=== PATIENT | female | born 1945 | race Caucasian/White ===

== ENCOUNTER 2017-03-28 16:14 | Emergency (ER) | payer MEDICARE, OTHER ==
[2017-03-28 16:35] VITALS: BP 178/75
[2017-03-28] MEDS ORDERED: LORazepam 0.5 MG Tab PO ONE (17:44)
[2017-03-28] MEDS ORDERED: Ondansetron 4 MG Tab.DIS PO ONE (17:44)
--- NOTE | 2017-03-28 17:49 | EDM.PDOC ---
ED HPI GENERAL MEDICAL PROBLEM - General Chief Complaint: Gastrointestinal Problem Stated Complaint: ILNESS Time Seen by Provider: 03/28/17 17:27 Source of Information: Reports: Patient, Family, RN Notes Reviewed History Limitations: Reports: No Limitations - History of Present Illness INITIAL COMMENTS - FREE TEXT/NARRATIVE: 71-year-old female presents emergency department today complaint of vertigo, she has a long history of vertigo however today's event may have been exacerbated by getting her hair washed in the beauty salon her head was tilted back for a period time she has had some nausea and vomiting symptoms with this abdominal pain associated with the crampiness from retching. Denies any fevers shortness breath or chest pain no or GI symptomatology. Usually controls her vertigo with Foster's maneuver. Is asymptomatic if she lays still - Related Data Allergies Allergy/AdvReac Type Severity Reaction Status Date / Time acetaminophen [From NyQuil] Allergy Cannot Verified 03/28/17 16:38 Remember clindamycin Allergy Cannot Verified 03/28/17 16:38 Remember dextromethorphan HBr Allergy Cannot Verified 03/28/17 16:38 [From NyQuil] Remember doxylamine succinate Allergy Cannot Verified 03/28/17 16:38 [From NyQuil] Remember ibuprofen Allergy Cannot Verified 03/28/17 16:38 [From DayQuil Sinus Remember Pressure/Pain] latex Allergy Cannot Verified 03/28/17 16:38 Remember meclizine Allergy Cannot Verified 03/28/17 16:38 Remember meclizine HCl [From Antivert] Allergy Cannot Verified 03/28/17 16:38 Remember pseudoephedrine HCl Allergy Cannot Verified 03/28/17 16:38 [From DayQuil Sinus Remember Pressure/Pain] Sulfa (Sulfonamide Allergy Cannot Verified 03/28/17 16:38 Antibiotics) Remember sulfamethoxazole Allergy Cannot Verified 03/28/17 16:38 [From Septra] Remember trimethoprim [From Septra] Allergy Cannot Verified 03/28/17 16:38 Remember Home Meds: Home Meds Calcium Carbonate/Vitamin D3 [Calcium 500 + Vit D Caplet] 1 each PO BID [History] Loratadine [Claritin] 10 mg PO DAILY 09/30/13 [History] Pantoprazole Sodium [Pantoprazole Sodium] 40 mg PO DAILY 09/30/13 [History] Simvastatin [Simvastatin] 40 mg PO DAILY 09/30/13 [History] Fluticasone Propionate [Flonase] 2 spray NASBOTH DAILY 08/24/15 [History] Cetirizine [ZyrTEC] 10 mg PO DAILY 09/01/15 [History] Triamcinolone Acetonide [Triamcinolone Acetonide 0.5% Oint] 1 cm TOP BID [History] Biotin 10 mg PO DAILY 03/28/17 [History] Ubidecarenone/Vitamin E Mixed [[id number]-[id number] E 200 mg-20 Unit Sfg] 200 mg PO DAILY 03/28/17 [History] Past Medical History HEENT History: Reports: Allergic Rhinitis, Impaired Vision Cardiovascular History: Reports: High Cholesterol 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: 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: Musculoskeletal History: Reports: Other (See Below) Other Musculoskeletal History: foot surg Neurological History: Reports: Vertigo Other Neuro History: concusion tingling - Infectious Disease History Infectious Disease History: Reports: Chicken Pox, Measles, Mumps - Past Surgical History Female Surgical History: Reports: Tubal Ligation Social & Family History - Tobacco Use Smoking Status *Q: Former Smoker Used Tobacco, but Quit: No Second Hand Smoke Exposure: No - Alcohol Use Days Per Week of Alcohol Use: 7 Number of Drinks Per Day: 1 Total Drinks Per Week: 7 - Recreational Drug Use Recreational Drug Use: No ED ROS GENERAL - Review of Systems Review Of Systems: See Below Constitutional: Reports: No Symptoms HEENT: Reports: Vertigo Respiratory: Reports: No Symptoms Cardiovascular: Reports: No Symptoms GI/Abdominal: Reports: No Symptoms : Reports: No Symptoms Musculoskeletal: Reports: No Symptoms Skin: Reports: No Symptoms ED EXAM, GENERAL - Physical Exam Exam: See Below Free Text/Narrative:: General: Female, not in any distress, alert and oriented x3 HEENT: head is atraumatic normocephalic, eyes pupils equal round reactive to light, sclera clear no conjunctivitis appreciated. Ears tympanic membranes clear and strong landmarks and light reflex are present bilaterally canals are clear. Nose no septal deviation, nares are clear, no blood present. Mouth mucosa is moist and pink no erythema or exudate noted in soft palate, tongue is midline uvula is midline, dentition is intact. Neck: Supple no thyromegaly no tracheal deviation. Nodes: Cervical nodes subclavicular nodes nontender no palpable lymphadenopathy noted. Lungs: clear to auscultation bilaterally with symmetrical respirations, no adventitious noise appreciated. CV: Regular rate and rhythm S1 and S2 appreciated no murmurs rubs or gallops noted. Abdomen: Soft, nontender, no palpable masses or organomegaly appreciated, no distention no guarding bowel sounds are present, Neuro: Cranial nerves II through XII grossly intact Skin: Warm and dry, intact Course - Vital Signs Last Recorded V/S: Last Vital Signs Temp 96.8 F 03/28/17 16:43 Pulse 71 03/28/17 16:43 Resp 18 03/28/17 16:43 BP 178/75 H 03/28/17 16:43 Pulse Ox 97 03/28/17 16:43 - Orders/Labs/Meds Meds: Medications Discontinued Medications Generic Name Dose Route Start Last Admin Trade Name Freq PRN Reason Stop Dose Admin Lorazepam 0.5 mg 03/28/17 17:44 03/28/17 17:53 Ativan PO 03/28/17 17:45 0.5 mg ONETIME ONE Administration Ondansetron HCl 4 mg 03/28/17 17:44 03/28/17 17:53 Zofran Odt PO 03/28/17 17:45 4 mg ONETIME ONE Administration Departure - Departure Time of Disposition: 18:42 Disposition: Home, Self-Care 01 Condition: Good Clinical Impression: Vertigo - Discharge Information Referrals: Rae Perales MD [Primary Care Provider] - Forms: ED Department Discharge Additional Instructions: Use Zofran as needed for nausea and vomiting symptoms, use Ativan as needed for vertigo symptoms, consult has been put into the physical therapy department for vertigo, call return to the emergency department worsening of symptoms - Assessment/Plan Plan: Assessment Acuity = acute Site and laterality = vertigo Etiology = unclear etiology Manifestations = nausea and vomiting Location of injury = Home Lab values = none Plan She had good improvement with combination Ativan and Zofran plan is to discharge home with Zofran 4 mg ODT 1 tab by mouth 3 times a day when necessary also Ativan 1 mg 1 tablet by mouth 3 times a day when necessary total #10 consultation was also written to physical therapy to the vertigo clinic follow- up with primary care 3-5 days if not better Patient was in agreement with the plan all questions were answered, they were instructed to return to the emergency department or call for worsening symptoms. This note was dictated using byyd voice recognition software please call with any questions.
== END 2017-03-28 19:06 | disposition home or self-care (01) ==
LOC: JP.ED 16:14
DX: R42 Dizziness and giddiness (principal); R11.2 Nausea with vomiting, unspecified; E78.00 Pure hypercholesterolemia, unspecified; K21.9 Gastro-esophageal reflux disease without esophagitis; Z87.891 Personal history of nicotine dependence; Z79.899 Other long term (current) drug therapy; Z88.1 Allergy status to other antibiotic agents; Z88.2 Allergy status to sulfonamides; Z88.6 Allergy status to analgesic agent; Z88.8 Allergy status to other drugs, medicaments and biological substances; Z91.040 Latex allergy status
CPT/HCPCS: 99283; A9270

== ENCOUNTER 2017-10-29 17:12 | Inpatient (IN) | payer MEDICARE, OTHER ==
[2017-10-29] MEDS ORDERED: Atropine/Diphenoxylate 0.025-2.5 MG Tab PO ONE (18:41)
[2017-10-29] MEDS ORDERED: Acetaminophen/HYDROcodone 325-5 MG Tab PO ONE (18:42)
--- NOTE | 2017-10-29 18:45 | EDM.PDOC ---
ED HPI GENERAL MEDICAL PROBLEM - General Chief Complaint: Abdominal Pain Stated Complaint: ABDOMINAL PAIN Time Seen by Provider: 10/29/17 18:35 Source of Information: Reports: Patient, Old Records History Limitations: Reports: No Limitations - History of Present Illness INITIAL COMMENTS - FREE TEXT/NARRATIVE: 72 yo female presents with diarrhea and upper abdominal pain progressive over the past 3-4 days. No fever. Some blood in stool felt to be from her known hemorroids. No nausea or vomiting. No pHx of any abdominal surgeries. Had colonoscopy 2 yrs ago and no pathology was found. No known exposures. Took Imodium last about 0430h today, having about 4 diarrhea stools/day. 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) - Related Data Allergies Allergy/AdvReac Type Severity Reaction Status Date / Time acetaminophen [From NyQuil] Allergy Cannot Verified 10/29/17 18:24 Remember clindamycin Allergy Cannot Verified 10/29/17 18:24 Remember dextromethorphan HBr Allergy Cannot Verified 10/29/17 18:24 [From NyQuil] Remember doxylamine succinate Allergy Cannot Verified 10/29/17 18:24 [From NyQuil] Remember ibuprofen Allergy Cannot Verified 10/29/17 18:24 [From DayQuil Sinus Remember Pressure/Pain] latex Allergy Cannot Verified 10/29/17 18:24 Remember meclizine Allergy Cannot Verified 10/29/17 18:24 Remember meclizine HCl [From Antivert] Allergy Cannot Verified 10/29/17 18:24 Remember pseudoephedrine HCl Allergy Cannot Verified 10/29/17 18:24 [From DayQuil Sinus Remember Pressure/Pain] Sulfa (Sulfonamide Allergy Cannot Verified 10/29/17 18:24 Antibiotics) Remember sulfamethoxazole Allergy Cannot Verified 10/29/17 18:24 [From Septra] Remember trimethoprim [From Septra] Allergy Cannot Verified 10/29/17 18:24 Remember Home Meds: Home Meds Calcium Carbonate/Vitamin D3 [Calcium 500 + Vit D Caplet] 1 each PO BID [History] Loratadine [Claritin] 10 mg PO DAILY 09/30/13 [History] Simvastatin 40 mg PO DAILY 09/30/13 [History] Fluticasone Propionate [Flonase] 2 spray NASBOTH DAILY 08/24/15 [History] Cetirizine [ZyrTEC] 10 mg PO DAILY 09/01/15 [History] Triamcinolone Acetonide [Triamcinolone Acetonide 0.5% Oint] 1 cm TOP BID [History] Biotin 10 mg PO DAILY 03/28/17 [History] Ubidecarenone/Vitamin E Mixed [[id number]-[id number] E 200 mg-20 Unit Sfg] 200 mg PO DAILY 03/28/17 [History] amLODIPine [Norvasc] 1 tab PO DAILY 10/29/17 [History] Past Medical History HEENT History: Reports: Allergic Rhinitis, Impaired Vision Cardiovascular History: Reports: High Cholesterol 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: Musculoskeletal History: Reports: Other (See Below) Other Musculoskeletal History: foot surg Neurological History: Reports: Vertigo Other Neuro History: concusion tingling - Infectious Disease History Infectious Disease History: Reports: Chicken Pox, Measles, Mumps - Past Surgical History Female Surgical History: Reports: Tubal Ligation Social & Family History - Tobacco Use Smoking Status *Q: Never Smoker ED ROS GENERAL - Review of Systems Review Of Systems: See Below Constitutional: Reports: No Symptoms HEENT: Reports: No Symptoms Respiratory: Reports: No Symptoms Cardiovascular: Reports: No Symptoms Endocrine: Reports: No Symptoms GI/Abdominal: Reports: Abdominal Pain, Anorexia, Diarrhea, Decreased Appetite. Denies: Black Stool, Bloody Stool, Constipation, Distension, Hematemesis, Hematochezia, Melena, Nausea, Stool Incontinence, Vomiting : Reports: No Symptoms Musculoskeletal: Reports: No Symptoms Skin: Reports: No Symptoms Neurological: Reports: No Symptoms Psychiatric: Reports: No Symptoms ED EXAM, GI/ABD - Physical Exam Exam: See Below Exam Limited By: No Limitations General Appearance: Alert, WD/WN, No Apparent Distress Eyes: Bilateral: Normal Appearance, EOMI Ears: Normal External Exam, Normal Canal, Hearing Grossly Normal, Normal TMs Nose: Normal Inspection, Normal Mucosa, No Blood Throat/Mouth: Normal Inspection, Normal Lips, Normal Oropharynx, Normal Voice, No Airway Compromise Head: Atraumatic, Normocephalic Neck: Normal Inspection, Supple, Non-Tender Respiratory/Chest: No Respiratory Distress, Lungs Clear, Normal Breath Sounds, No Accessory Muscle Use Cardiovascular: Regular Rate, Rhythm, No Edema GI/Abdominal Exam: Normal Bowel Sounds, Soft, No Distention, Tender (Mild mid to lower abdominal tenderness on palpation. ). No: Non-Tender Back Exam: Normal Inspection. No: CVA Tenderness (R), CVA Tenderness (L) Extremities: Normal Inspection, Normal Range of Motion, Non-Tender, No Pedal Edema Neurological: Alert, Oriented, CN II-XII Intact, Normal Cognition, No Motor/ Sensory Deficits Psychiatric: Normal Affect, Normal Mood Skin Exam: Warm, Dry, Intact, Normal Color, No Rash Lymphatic: No Adenopathy Course - Vital Signs Last Recorded V/S: Last Vital Signs Temp 36.8 C 10/29/17 18:30 Pulse 60 10/29/17 18:30 Resp 14 10/29/17 18:30 BP 160/68 H 10/29/17 18:30 Pulse Ox 7 L 10/29/17 18:30 - Orders/Labs/Meds Orders: Active Orders 24 hr Category Date Time Status Abdomen Pelvis w Cont [CT] Stat Exams 10/29/17 19:28 Taken CLOSTRIDIUM DIFFICILE BY PCR [RM] Stat Lab 10/29/17 18:41 Ordered Ciprofloxacin in D5W [Cipro in D5W 400 MG/200 ML] 400 Med 10/29/17 21:11 Active mg Premix Bag 1 bag IV ONETIME metroNIDAZOLE/Normal Saline [Flagyl 500 MG in NS 100 ML Med 10/29/17 21:11 Active ] 500 mg Premix Bag 1 bag IV ONETIME Medication Orders Ciprofloxacin/Dextrose 400 mg/ (Premix) 200 mls @ 200 mls/hr IV ONETIME ONE Stop: 10/29/17 22:10 Metronidazole 500 mg/ Premix 100 mls @ 100 mls/hr IV ONETIME ONE Stop: 10/29/17 22:10 Labs: Laboratory Tests 10/29/17 10/29/17 Range/Units 18:54 18:54 WBC 12.5 H (4.5-11.0) K/uL RBC 4.93 (3.30-5.50) M/uL Hgb 14.2 (12.0-15.0) g/dL Hct 42.8 (36.0-48.0) % MCV 87 (80-98) fL MCH 29 (27-31) pg MCHC 33 (32-36) % Plt Count 225 (150-400) K/uL Sodium 139 L (140-148) mmol/L Potassium 4.2 (3.6-5.2) mmol/L Chloride 105 (100-108) mmol/L Carbon Dioxide 27 (21-32) mmol/L Anion Gap 11.2 (5.0-14.0) mmol/L BUN 7 (7-18) mg/dL Creatinine 0.7 (0.6-1.0) mg/dL Est Cr Clr Drug Dosing 64.58 mL/min Estimated GFR (MDRD) > 60 (>60) Glucose 109 H (74-106) mg/dL Calcium 8.7 (8.5-10.1) mg/dL Total Bilirubin 0.4 (0.2-1.0) mg/dL AST 14 L (15-37) U/L ALT 20 (12-78) U/L Alkaline Phosphatase 66 (46-116) U/L C-Reactive Protein 4.02 H (0.0-0.3) mg/dL Total Protein 6.3 L (6.4-8.2) g/dL Albumin 3.0 L (3.4-5.0) g/dL Globulin 3.3 (2.3-3.5) g/dL Albumin/Globulin Ratio 0.9 L (1.2-2.2) Lipase 104 (73-393) U/L Meds: Medications Generic Name Dose Route Start Last Admin Trade Name Freq PRN Reason Stop Dose Admin Ciprofloxacin/Dextrose 400 mg/ 200 mls @ 200 mls/hr 10/29/17 21:11 Premix IV 10/29/17 22:10 ONETIME ONE Metronidazole 500 mg/ Premix 100 mls @ 100 mls/hr 10/29/17 21:11 IV 10/29/17 22:10 ONETIME ONE Discontinued Medications Generic Name Dose Route Start Last Admin Trade Name Freq PRN Reason Stop Dose Admin Hydrocodone Bitart/Acetaminophen 1 tab 10/29/17 18:42 10/29/17 19:03 Calcium 325-5 Mg PO 10/29/17 18:43 1 tab ONETIME ONE Administration Diphenoxylate HCl/Atropine 1 tab 10/29/17 18:41 10/29/17 19:02 Lomotil 0.025-2.5 Mg PO 10/29/17 18:42 1 tab ONETIME ONE Administration Famotidine 20 mg 10/29/17 21:11 Pepcid IVPUSH 10/29/17 21:12 ONETIME ONE Sodium Chloride 100 mls @ 3.5 mls/sec 10/29/17 19:59 10/29/17 20:19 Normal Saline IV 10/29/17 20:00 3.5 mls/sec ONETIME ONE Administration Lactated Ringer's 1,000 mls @ 1,000 mls/hr 10/29/17 20:20 10/29/17 21:02 Ringers, Lactated IV 10/29/17 21:19 1,000 mls/hr BOLUS ONE Administration Iopamidol 150 ml 10/29/17 20:00 10/29/17 20:19 Isovue-300 (61%) IV 110 ml . DIRECTED CHINTAN Administration Sodium Chloride 10 ml 10/29/17 19:59 10/29/17 20:19 Saline Flush FLUSH 10/29/17 20:00 10 ml ONETIME ONE Administration - Radiology Interpretation Free Text/Narrative:: CT abd/pelvis with IV contrast-severe wall thickening of the ascending colo and hepatic flexure. CT Results Date: 10/29/17 CT Results Time: 21:05 Departure - Departure Time of Disposition: 21:40 Disposition: Admitted As Inpatient 68 Condition: Fair Clinical Impression: Colitis - Discharge Information Referrals: Vega Solo MD [Primary Care Provider] - Forms: ED Department Discharge - My Orders Last 24 Hours: My Active Orders 10/29/17 18:41 CLOSTRIDIUM DIFFICILE BY PCR [RM] Stat 10/29/17 19:28 Abdomen Pelvis w Cont [CT] Stat 10/29/17 21:11 Ciprofloxacin in D5W [Cipro in D5W 400 MG/200 ML] 400 mg Premix Bag 1 bag IV ONETIME metroNIDAZOLE/Normal Saline [Flagyl 500 MG in NS 100 ML] 500 mg Premix Bag 1 bag IV ONETIME - Assessment/Plan Last 24 Hours: My Active Orders 10/29/17 18:41 CLOSTRIDIUM DIFFICILE BY PCR [RM] Stat 10/29/17 19:28 Abdomen Pelvis w Cont [CT] Stat 10/29/17 21:11 Ciprofloxacin in D5W [Cipro in D5W 400 MG/200 ML] 400 mg Premix Bag 1 bag IV ONETIME metroNIDAZOLE/Normal Saline [Flagyl 500 MG in NS 100 ML] 500 mg Premix Bag 1 bag IV ONETIME
[2017-10-29] MEDS ORDERED: Sodium Chloride 0.9% 10 ML Syringe FLUSH ONE (19:59)
[2017-10-29] MEDS ORDERED: Sodium Chloride 0.9% 100 ML IV ONE (19:59)
[2017-10-29] MEDS ORDERED: Iopamidol 612 MG/ML 150 ML Bottle IV SCH (20:00)
[2017-10-29] MEDS ORDERED: Lactated Ringers 1,000 ML IV ONE (20:20)
[2017-10-29] MEDS ORDERED: Ciprofloxacin in D5W 400 MG in Premix Bag 1 BAG IV ONE ×2 (21:11)
[2017-10-29] MEDS ORDERED: metroNIDAZOLE/Normal Saline 500 MG in Premix Bag 1 BAG IV ONE (21:11)
[2017-10-29] MEDS ORDERED: Famotidine 20 MG/2 ML SDV IVPUSH ONE (21:11)
[2017-10-29] MEDS ORDERED: Lactated Ringers 1,000 ML IV SCH (21:45)
[2017-10-29] MEDS ORDERED: metroNIDAZOLE/Normal Saline 100 ML ONE (22:37)
[2017-10-29] MEDS ORDERED: Sodium Chloride 0.9% 1,000 ML IV SCH (23:32)
[2017-10-29] MEDS ORDERED: Docusate Sodium 100 MG Cap PO PRN (23:32)
[2017-10-29] MEDS ORDERED: Morphine 2 MG/ML Syringe IVPUSH PRN (23:32)
[2017-10-29] MEDS ORDERED: Ondansetron 4 MG/2 ML SDV IV PRN (23:32)
[2017-10-29] MEDS ORDERED: Ondansetron 4 MG Tab.DIS PO PRN (23:32)
[2017-10-29] MEDS ORDERED: Zolpidem 5 MG Tab PO PRN (23:32)
[2017-10-29] MEDS ORDERED: Albuterol 0.083% 2.5 MG/3 ML Neb Soln NEB PRN (23:32)
[2017-10-29] MEDS ORDERED: Bisacodyl 5 MG Tab PO PRN (23:32)
[2017-10-29] MEDS ORDERED: LORazepam 2 MG/ML SDV IV PRN (23:32)
[2017-10-30] MEDS: Acetaminophen/HYDROcodone 325-5 MG Tab PO PRN ×4 (00:16→20:36)
[2017-10-30] MEDS: Piperacillin/Tazobactam 3.375 GM in Sodium Chloride 0.9% 50 ML IV SCH ×2 (00:20→04:19)
[2017-10-30] MEDS: Melatonin 3 MG Tab PO SCH ×2 (00:24→20:14)
[2017-10-30] MEDS ORDERED: Simvastatin 20 MG Tab ONE (01:01)
[2017-10-30] MEDS: Simvastatin 20 MG Tab PO SCH ×2 (01:08→20:15)
[2017-10-30] MEDS: metroNIDAZOLE/Normal Saline 500 MG in Premix Bag 1 BAG IV SCH ×3 (05:58→22:07)
--- NOTE | 2017-10-30 07:01 | PCM.HP ---
H&P History of Present Illness - General Date of Service: 10/29/17 Admit Problem/Dx: Admission Diagnosis/Problem Admission Diagnosis/Problem Colitis Source of Information: Patient, Family () History Limitations: Reports: No Limitations - History of Present Illness Initial Comments - Free Text/Narative: 72 yo female presents with diarrhea and upper abdominal pain progressive over the past 3-4 days. No fever. Some blood in stool felt to be from her known hemorroids. No nausea or vomiting. No pHx of any abdominal surgeries. Had colonoscopy 2 yrs ago and no pathology was found. No known exposures. Took Imodium last about 0430h today, having about 4 diarrhea stools/day. Onset: Gradual Onset Date: 10/25/17 Duration: Getting Worse Location: Reports: Abdomen Quality: Reports: Ache Severity: Moderate Improves with: Reports: None Worsens with: Reports: None Context: Reports: Other (unknown) Associated Symptoms: Denies: Fever/Chills, Nausea/Vomiting Treatments REGISTRATION REPRESENTATIVE: Reports: Other (see below) (none) CT abd/pelvis with IV contrast-severe wall thickening of the ascending colo and hepatic flexure. CT Results Date: 10/29/17 CT Results Time: 21:05 Departure; admission Onset of Symptoms: Reports: Gradual Symptom Onset Date: 10/26/17 Duration of Symptoms: Reports: Waxing/Waning, Other (not able to eat for 2 days due to pain, nausea, vomiting.) Location: Reports: Abdomen Quality: Reports: Same as Previous Episode Severity: Severe Improves with: Reports: None Worsens with: Reports: Eating Context: Reports: Other (chronic disease) Associated Symptoms: Reports: Loss of Appetite, Malaise, Nausea/Vomiting, Weakness 7 Pain Score (Numeric/FACES): 3 - Related Data Allergies/Adverse Reactions: Allergies Allergy/AdvReac Type Severity Reaction Status Date / Time acetaminophen [From NyQuil] Allergy Cannot Verified 10/29/17 18:24 Remember clindamycin Allergy Cannot Verified 10/29/17 18:24 Remember dextromethorphan HBr Allergy Cannot Verified 10/29/17 18:24 [From NyQuil] Remember doxylamine succinate Allergy Cannot Verified 10/29/17 18:24 [From NyQuil] Remember ibuprofen Allergy Cannot Verified 10/29/17 18:24 [From DayQuil Sinus Remember Pressure/Pain] latex Allergy Cannot Verified 10/29/17 18:24 Remember meclizine Allergy Cannot Verified 10/29/17 18:24 Remember meclizine HCl [From Antivert] Allergy Cannot Verified 10/29/17 18:24 Remember pseudoephedrine HCl Allergy Cannot Verified 10/29/17 18:24 [From DayQuil Sinus Remember Pressure/Pain] Sulfa (Sulfonamide Allergy Cannot Verified 10/29/17 18:24 Antibiotics) Remember sulfamethoxazole Allergy Cannot Verified 10/29/17 18:24 [From Septra] Remember trimethoprim [From Septra] Allergy Cannot Verified 10/29/17 18:24 Remember Home Medications: Home Meds Calcium Carbonate/Vitamin D3 [Calcium 500 + Vit D Caplet] 1 each PO BID [History] Loratadine [Claritin] 10 mg PO DAILY 09/30/13 [History] Simvastatin 40 mg PO DAILY 09/30/13 [History] Fluticasone Propionate [Flonase] 2 spray NASBOTH DAILY 08/24/15 [History] Cetirizine [ZyrTEC] 10 mg PO DAILY 09/01/15 [History] Triamcinolone Acetonide [Triamcinolone Acetonide 0.5% Oint] 1 cm TOP BID [History] Biotin 10 mg PO DAILY 03/28/17 [History] Ubidecarenone/Vitamin E Mixed [[id number] E 200 mg-20 Unit Sfg] 200 mg PO DAILY 03/28/17 [History] amLODIPine [Norvasc] 1 tab PO DAILY 10/29/17 [History] Past Medical History HEENT History: Reports: Allergic Rhinitis, Impaired Vision Cardiovascular History: Reports: High Cholesterol 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: GERD [employer]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: Musculoskeletal History: Reports: Arthritis, Other (See Below) Other Musculoskeletal History: foot surg Neurological History: Reports: Vertigo Other Neuro History: concusion tingling Endocrine/Metabolic History: Reports: Other (See Below) Other Endocrine/Metabolic History: prediabetic Hematologic History: Reports: Iron Deficiency - Infectious Disease History Infectious Disease History: Reports: Chicken Pox, Measles, Mumps - Past Surgical History Female Surgical History: Reports: Tubal Ligation Social & Family History - Family History Family Medical History: Noncontributory - Tobacco Use Smoking Status *Q: Former Smoker Used Tobacco, but Quit: Yes Month/Year Tobacco Last Used: 1972 - Caffeine Use Caffeine Use: Reports: None - Alcohol Use Number of Drinks Per Day: 1 Date of Last Drink: 10/22/17 - Recreational Drug Use Recreational Drug Use: No - Living Situation & Occupation Living situation: Reports: (lives in [place] with .) H&P Review of Systems - Review of Systems: Review Of Systems: See Below General: Reports: Malaise, Weakness, Decreased Appetite HEENT: Reports: Glasses Pulmonary: Reports: No Symptoms Cardiovascular: Reports: No Symptoms Gastrointestinal: Reports: Abdominal Pain Genitourinary: Reports: No Symptoms Musculoskeletal: Reports: No Symptoms Skin: Reports: No Symptoms Psychiatric: Reports: No Symptoms Neurological: Reports: No Symptoms Hematologic/Lymphatic: Reports: No Symptoms Immunologic: Reports: Anaphylaxis (multi medication allergies) Exam - Exam Exam: See Below - Vital Signs Vital Signs: Last Vital Signs Temp 36.2 C 10/30/17 03:00 Pulse 56 L 10/30/17 03:00 Resp 16 10/30/17 03:00 BP 144/61 H 10/30/17 03:00 Pulse Ox 96 10/30/17 03:00 Weight: 73.936 kg - Exam General: Alert, Oriented, 4 HEENT: PERRLA, Hearing Intact, Mucosa Moist & [place], Nares Patent, Normal Nasal Septum, Posterior Pharynx Clear, Conjunctiva Clear, EOMI, EACs Clear, TMs Clear Neck: Supple, Trachea Midline, 2 Lungs: Clear to Auscultation, Normal Respiratory Effort Cardiovascular: Regular Rate GI/Abdominal Exam: Normal Bowel Sounds, Distended (mild), Tender (Female) Exam: Deferred Rectal (Female) Exam: Deferred Back Exam: Normal Inspection, Full Range of Motion, NT Extremities: Normal Inspection, Normal Range of Motion, Non-Tender, No Pedal Edema, Normal Capillary Refill Peripheral Pulses: 2+: Radial (L), Radial (R), Posterior Tibial (R), Dorsalis Pedis (L) Skin: Warm, Dry, Intact Neurological: Cranial Nerves Intact, Reflexes Equal Bilateral Neuro Extensive - Mental Status: Alert, Oriented x3, Normal Mood/Affect, Normal Cognition Neuro Extensive - Motor, Sensory, Reflexes: CN II-XII Intact, Normal Reflexes Psychiatric: Alert, Normal Affect, Normal Mood - Patient Data Lab Results Last 24 hrs: Laboratory Results - last 24 hr 10/29/17 10/29/17 10/30/17 Range/Units 18:54 18:54 05:06 WBC 12.5 H 10.4 (4.5-11.0) K/uL RBC 4.93 4.53 (3.30-5.50) M/uL Hgb 14.2 13.1 (12.0-15.0) g/dL Hct 42.8 39.6 (36.0-48.0) % MCV 87 87 (80-98) fL MCH 29 29 (27-31) pg MCHC 33 33 (32-36) % Plt Count 225 203 (150-400) K/uL Neut % (Auto) 72 H (36-66) % Lymph % (Auto) 16 L (24-44) % [place] % (Auto) 9 H (2-6) % Eos % (Auto) 2 (2-4) % Baso % (Auto) 0 (0-1) % Sodium 139 L (140-148) mmol/L Potassium 4.2 (3.6-5.2) mmol/L Chloride 105 (100-108) mmol/L Carbon Dioxide 27 (21-32) mmol/L Anion Gap 11.2 (5.0-14.0) mmol/L BUN 7 (7-18) mg/dL Creatinine 0.7 (0.6-1.0) mg/dL Est Cr Clr Drug Dosing 64.58 mL/min Estimated GFR (MDRD) > 60 (>60) Glucose 109 H (74-106) mg/dL Calcium 8.7 (8.5-10.1) mg/dL Total Bilirubin 0.4 (0.2-1.0) mg/dL AST 14 L (15-37) U/L ALT 20 (12-78) U/L Alkaline Phosphatase 66 (46-116) U/L C-Reactive Protein 4.02 H (0.0-0.3) mg/dL Total Protein 6.3 L (6.4-8.2) g/dL Albumin 3.0 L (3.4-5.0) g/dL Globulin 3.3 (2.3-3.5) g/dL Albumin/Globulin Ratio 0.9 L (1.2-2.2) Lipase 104 (73-393) U/L 10/30/17 Range/Units 05:06 WBC (4.5-11.0) K/uL RBC (3.30-5.50) M/uL Hgb (12.0-15.0) g/dL Hct (36.0-48.0) % MCV (80-98) fL MCH (27-31) pg MCHC (32-36) % Plt Count (150-400) K/uL Neut % (Auto) (36-66) % Lymph % (Auto) (24-44) % [place] % (Auto) (2-6) % Eos % (Auto) (2-4) % Baso % (Auto) (0-1) % Sodium 140 (140-148) mmol/L Potassium 3.6 (3.6-5.2) mmol/L Chloride 106 (100-108) mmol/L Carbon Dioxide 25 (21-32) mmol/L Anion Gap 8.8 (5.0-14.0) mmol/L BUN 7 (7-18) mg/dL Creatinine 0.6 (0.6-1.0) mg/dL Est Cr Clr Drug Dosing 75.34 mL/min Estimated GFR (MDRD) > 60 (>60) Glucose 110 H (74-106) mg/dL Calcium 8.3 L (8.5-10.1) mg/dL Total Bilirubin (0.2-1.0) mg/dL AST (15-37) U/L ALT (12-78) U/L Alkaline Phosphatase (46-116) U/L C-Reactive Protein (0.0-0.3) mg/dL Total Protein (6.4-8.2) g/dL Albumin (3.4-5.0) g/dL Globulin (2.3-3.5) g/dL Albumin/Globulin Ratio (1.2-2.2) Lipase (73-393) U/L Result Diagrams: 10/30/17 05:06 10/30/17 05:06 - Problem List (1) Colitis SNOMED Code(s): 97083897 ICD Code: K52.9 - NONINFECTIVE GASTROENTERITIS AND COLITIS, UNSPECIFIED Status: Acute Priority: High Current Visit: Yes (2) Hypertension SNOMED Code(s): 27411393 ICD Code: I10 - ESSENTIAL (PRIMARY) HYPERTENSION Status: Acute Priority: Low Current Visit: Yes Qualifiers: Hypertension type: essential hypertension Qualified Code(s): I10 - Essential (primary) hypertension Problem List Initiated/Reviewed/Updated: Yes Orders Last 24hrs: Active Orders 24 hr Category Date Time Status Patient Status [ADT] Routine ADT 10/29/17 23:32 Active Intake and Output [RC] QSHIFT Care 10/29/17 23:32 Active Notify Provider Vital Signs [RC] ASDIRECTED Care 10/29/17 23:32 Active Oxygen Therapy [RC] .PRN Care 10/29/17 23:32 Active Pulse Oximetry [RC] .PRN Care 10/29/17 23:32 Active RT Aerosol Therapy [RC] ASDIRECTED Care 10/29/17 23:32 Active Up ad Olga [RC] ASDIRECTED Care 10/29/17 23:32 Active Vital Signs [RC] Q4H Care 10/29/17 23:32 Active Consult to Spiritual Care [CONS] Routine Cons 10/29/17 23:32 Active Clear Liquid Diet [DIET] Diet 10/29/17 Breakfast Active Abdomen Pelvis w Cont [CT] Stat Exams 10/29/17 19:28 Taken CLOSTRIDIUM DIFFICILE BY PCR [RM] Stat Lab 10/29/17 18:41 Ordered Acetaminophen/HYDROcodone [Clio 325-5 MG] Med 10/29/17 23:32 Active 1 tab PO Q4H PRN Albuterol [Proventil Neb Soln] Med 10/29/17 23:32 Active 2.5 mg NEB Q4H PRN Bisacodyl [Dulcolax] Med 10/29/17 23:32 Active 5 mg PO DAILY PRN Calcium Carbonate/Vitamin D3 [Caltrate 600+D 1500 MG- Med 10/30/17 09:00 Active 400 Units] 1 tab PO BID Cetirizine [ZyrTEC] Med 10/30/17 09:00 Active 10 mg PO DAILY Docusate Sodium [Colace] Med 10/29/17 23:32 Active 100 mg PO BID PRN Enoxaparin [Lovenox] Med 10/30/17 09:00 Active 30 mg SUBCUT DAILY Famotidine [Pepcid] Med 10/30/17 09:00 Active 20 mg IVPUSH BID Fluticasone Propionate [Flonase] Med 10/30/17 09:00 Active 0 gm NASBOTH DAILY LORazepam [Ativan] Med 10/29/17 23:32 Active 1 mg IV Q6H PRN Lactated Ringers [Ringers, Lactated] 1,000 ml Med 10/29/17 21:45 Active IV ASDIRECTED Loratadine [Claritin] Med 10/30/17 09:00 Pending 10 mg PO DAILY Melatonin Med 10/30/17 00:00 Active 9 mg PO BEDTIME Morphine Med 10/29/17 23:32 Active 2 mg IVPUSH Q2H PRN Ondansetron [Zofran ODT] Med 10/29/17 23:32 Active 4 mg PO Q6H PRN Ondansetron [Zofran] Med 10/29/17 23:32 Active 4 mg IV Q4H PRN Piperacillin/Tazobactam [Zosyn] 3.375 gm Med 10/29/17 23:00 Active Sodium Chloride 0.9% [Normal Saline] 50 ml IV Q6H Simvastatin [Zocor] Med 10/30/17 01:00 Active 40 mg PO BEDTIME Sodium Chloride 0.9% [Normal Saline] 1,000 ml Med 10/29/17 23:32 Active IV ASDIRECTED Zolpidem [Ambien] Med 10/29/17 23:32 Active 5 mg PO BEDTIME PRN amLODIPine [Norvasc] Med 10/30/17 09:00 Active 2.5 mg PO DAILY methylPREDNISolone Sod Succ [Solu-MEDROL] Med 10/30/17 06:58 Once 125 mg IVPUSH ONETIME ONE methylPREDNISolone Sod Succ [Solu-MEDROL] Med 10/30/17 13:10 Ordered 62.5 mg IVPUSH Q6H metroNIDAZOLE/Normal Saline [Flagyl 500 MG in NS 100 ML Med 10/30/17 06:00 Active ] 500 mg Premix Bag 1 bag IV Q8H Resuscitation Status Routine Resus Stat 10/29/17 23:00 Ordered Medication Orders Hydrocodone Bitart/Acetaminophen (Clio 325-5 Mg) 1 tab PO Q4H PRN PRN Reason: Pain (moderate 4-6) Last Admin: 10/30/17 00:16 Dose: 1 tab Albuterol (Proventil Neb Soln) 2.5 mg NEB Q4H PRN PRN Reason: Shortness Of Breath/wheezing Amlodipine Besylate (Norvasc) 2.5 mg PO DAILY [facility] Bisacodyl (Dulcolax) 5 mg PO DAILY PRN PRN Reason: Constipation Calcium Carbonate (Caltrate 600+D 1500 Mg-400 Units) 1 tab PO BID [facility] Cetirizine HCl (Zyrtec) 10 mg PO DAILY [facility] Docusate Sodium (Colace) 100 mg PO BID PRN PRN Reason: Constipation Enoxaparin Sodium (Lovenox) 30 mg SUBCUT DAILY [facility] Famotidine (Pepcid) 20 mg IVPUSH BID [facility] Fluticasone Propionate (Flonase) 0 gm NASBOTH DAILY [facility] Lactated Ringer's (Ringers, Lactated) 1,000 mls @ 150 mls/hr IV ASDIRECTED [facility] Last Admin: 10/29/17 22:03 Dose: 150 mls/hr Metronidazole 500 mg/ Premix 100 mls @ 100 mls/hr IV Q8H [facility] Last Admin: 10/30/17 05:58 Dose: 100 mls/hr Piperacillin Sod/Tazobactam (Sod 3.375 gm/ Sodium Chloride) 50 mls @ 100 mls/ hr IV Q6H [facility] Last Admin: 10/30/17 04:19 Dose: 100 mls/hr Admin: 10/30/17 00:20 Dose: 100 mls/hr Sodium Chloride (Normal Saline) 1,000 mls @ 125 mls/hr IV ASDIRECTED [facility] Last Admin: 10/30/17 05:59 Dose: 125 mls/hr Loratadine (Claritin) 10 mg PO DAILY [facility] Lorazepam (Ativan) 1 mg IV Q6H PRN PRN Reason: Nausea/Vomiting Melatonin (Melatonin) 9 mg PO BEDTIME [facility] Last Admin: 10/30/17 00:24 Dose: 9 mg Methylprednisolone Sodium Succinate (Solu-Medrol) 125 mg IVPUSH ONETIME ONE Stop: 10/30/17 06:59 Methylprednisolone Sodium Succinate (Solu-Medrol) 62.5 mg IVPUSH Q6H [facility] Morphine Sulfate (Morphine) 2 mg IVPUSH Q2H PRN PRN Reason: Pain (severe 7-10) Ondansetron HCl (Zofran Odt) 4 mg PO Q6H PRN PRN Reason: Nausea able to take PO Ondansetron HCl (Zofran) 4 mg IV Q4H PRN PRN Reason: Nausea/Vomiting Simvastatin (Zocor) 40 mg PO BEDTIME [facility] Last Admin: 10/30/17 01:08 Dose: 40 mg Zolpidem Tartrate (Ambien) 5 mg PO BEDTIME PRN PRN Reason: Sleep Assessment/Plan Comment:: Assessment/Plan Comment:: ASSESSMENT AND PLAN - Mrs. Marroquin, resports 4 day history of abdominal pain with nausa and vomiting, unable to eat for the past two day. now with weakness. Labs in ER show elevated WBC 12.5, Na 139, K+ 4.2, cl 105, anion cap 11.2, bun 7 , cr 0.7, gluc 109. crp 4.02 Imagine; abdomen-pelvis CT, severe wall thickening noted in the ascending colon and hepatic flexure with mild surrounding edema and inflammatory changes. findingare likely due to infectious colitis or inflammatory bowel disease. Typhlitis or ischemic bowel can be considered in the appropriate clinical context. Colitis -IV every 24 hours -IV Flagyle 500mg every 8 hours -IV Zoysn 3.375 mg iv every 6 hr -IV fluid NS 125ml/hr -IV Solumedrol 125mg mg now and 62.5mg IV every 6 hours -clear liquid diet -am labs cbc, bmp Essential hypertension - blood pressure currently normal but will need to be monitored closely with active infection. Usual medications will be continued unless blood pressure trends down Maintenance issues - - DVT prophylaxis - enoxaparin - GI prophylaxis - IV Pepcid - Nutrition - clear diet - Olea catheter - not indicated -spiritual care CODE STATUS - FULL Admission justification - This patient will be admitted for inpatient services and is medically appropriate meeting medical necessity for inpatient admission as outlined in my documentation. I reasonably expect the patient will require inpatient services that span a period time over 2 midnights. I reasonably expect this patient to be discharged or transferred within 96 hours [facility]. Disposition - anticipate discharge home after the hospital stay Primary care physician - Veag Hilarioists: Steven Teixeira M.D.
[2017-10-30] MEDS ORDERED: methylPREDNISolone Sodium Succinate 125 MG/2 ML SDV IVPUSH ONE (07:30)
[2017-10-30] MEDS ORDERED: Enoxaparin 30 MG/0.3 ML Syringe SUBCUT SCH (09:00)
[2017-10-30] MEDS ORDERED: Loratadine 5 MG/5 ML Soln ML (120 ML Bottle) PO SCH (09:00)
[2017-10-30] MEDS: Piperacillin/Tazobactam/Dext 3.375 GM in Premix Bag 1 BAG IV SCH ×3 (11:00→23:15)
--- NOTE | 2017-10-30 11:58 | PCM.PN ---
- General Info Date of Service: 10/30/17 Functional Status: Reports: Pain Controlled, Tolerating Diet - Review of Systems General: Denies: Fever Gastrointestinal: Denies: Diarrhea Systems Review Comment:: There were no acute events overnight. Patient did not have any fevers. She has not had diarrhea since presentation. Still having mild to moderate right upper quadrant abdominal pain and some nausea. Not much of an appetite. Stool studies are still pending. No complaints of vomiting. - Patient Data Vitals - Most Recent: Last Vital Signs Temp 36.1 C 10/30/17 11:25 Pulse 54 L 10/30/17 11:25 Resp 18 10/30/17 11:25 BP 134/56 L 10/30/17 11:25 Pulse Ox 94 L 10/30/17 11:25 Weight - Most Recent: 73.936 kg I&O - Last 24 Hours: Intake & Output 10/29/17 10/30/17 10/30/17 22:59 06:59 14:59 Intake Total 898 240 Balance 898 240 Lab Results Last 24 Hours: Laboratory Results - last 24 hr 10/29/17 10/29/17 10/30/17 Range/Units 18:54 18:54 05:06 WBC 12.5 H 10.4 (4.5-11.0) K/uL RBC 4.93 4.53 (3.30-5.50) M/uL Hgb 14.2 13.1 (12.0-15.0) g/dL Hct 42.8 39.6 (36.0-48.0) % MCV 87 87 (80-98) fL MCH 29 29 (27-31) pg MCHC 33 33 (32-36) % Plt Count 225 203 (150-400) K/uL Neut % (Auto) 72 H (36-66) % Lymph % (Auto) 16 L (24-44) % [place] % (Auto) 9 H (2-6) % Eos % (Auto) 2 (2-4) % Baso % (Auto) 0 (0-1) % Sodium 139 L (140-148) mmol/L Potassium 4.2 (3.6-5.2) mmol/L Chloride 105 (100-108) mmol/L Carbon Dioxide 27 (21-32) mmol/L Anion Gap 11.2 (5.0-14.0) mmol/L BUN 7 (7-18) mg/dL Creatinine 0.7 (0.6-1.0) mg/dL Est Cr Clr Drug Dosing 64.58 mL/min Estimated GFR (MDRD) > 60 (>60) Glucose 109 H (74-106) mg/dL Calcium 8.7 (8.5-10.1) mg/dL Total Bilirubin 0.4 (0.2-1.0) mg/dL AST 14 L (15-37) U/L ALT 20 (12-78) U/L Alkaline Phosphatase 66 (46-116) U/L C-Reactive Protein 4.02 H (0.0-0.3) mg/dL Total Protein 6.3 L (6.4-8.2) g/dL Albumin 3.0 L (3.4-5.0) g/dL Globulin 3.3 (2.3-3.5) g/dL Albumin/Globulin Ratio 0.9 L (1.2-2.2) Lipase 104 (73-393) U/L 10/30/17 Range/Units 05:06 WBC (4.5-11.0) K/uL RBC (3.30-5.50) M/uL Hgb (12.0-15.0) g/dL Hct (36.0-48.0) % MCV (80-98) fL MCH (27-31) pg MCHC (32-36) % Plt Count (150-400) K/uL Neut % (Auto) (36-66) % Lymph % (Auto) (24-44) % [place] % (Auto) (2-6) % Eos % (Auto) (2-4) % Baso % (Auto) (0-1) % Sodium 140 (140-148) mmol/L Potassium 3.6 (3.6-5.2) mmol/L Chloride 106 (100-108) mmol/L Carbon Dioxide 25 (21-32) mmol/L Anion Gap 8.8 (5.0-14.0) mmol/L BUN 7 (7-18) mg/dL Creatinine 0.6 (0.6-1.0) mg/dL Est Cr Clr Drug Dosing 75.34 mL/min Estimated GFR (MDRD) > 60 (>60) Glucose 110 H (74-106) mg/dL Calcium 8.3 L (8.5-10.1) mg/dL Total Bilirubin (0.2-1.0) mg/dL AST (15-37) U/L ALT (12-78) U/L Alkaline Phosphatase (46-116) U/L C-Reactive Protein (0.0-0.3) mg/dL Total Protein (6.4-8.2) g/dL Albumin (3.4-5.0) g/dL Globulin (2.3-3.5) g/dL Albumin/Globulin Ratio (1.2-2.2) Lipase (73-393) U/L Med Orders - Current: Current Medications Hydrocodone Bitart/Acetaminophen ([place] 325-5 Mg) 1 tab PO Q4H PRN PRN Reason: Pain (moderate 4-6) Last Admin: 10/30/17 07:52 Dose: 1 tab Albuterol (Proventil Neb Soln) 2.5 mg NEB Q4H PRN PRN Reason: Shortness Of Breath/wheezing Amlodipine Besylate (Norvasc) 2.5 mg PO DAILY [facility] Bisacodyl (Dulcolax) 5 mg PO DAILY PRN PRN Reason: Constipation Calcium Carbonate (Caltrate 600+D 1500 Mg-400 Units) 1 tab PO BID [facility] Cetirizine HCl (Zyrtec) 10 mg PO DAILY [facility] Docusate Sodium (Colace) 100 mg PO BID PRN PRN Reason: Constipation Enoxaparin Sodium (Lovenox) 40 mg SUBCUT DAILY [facility] Famotidine (Pepcid) 20 mg IVPUSH BID [facility] Fluticasone Propionate (Flonase) 0 gm NASBOTH DAILY [facility] Metronidazole 500 mg/ Premix 100 mls @ 100 mls/hr IV Q8H [facility] Last Admin: 10/30/17 05:58 Dose: 100 mls/hr Piperacillin/Tazobactam/ (Dextrose 3.375 gm/ Premix) 50 mls @ 100 mls/hr IV Q6H [facility] Last Admin: 10/30/17 11:00 Dose: 100 mls/hr Loratadine (Claritin) 10 mg PO DAILY [facility] Lorazepam (Ativan) 1 mg IV Q6H PRN PRN Reason: Nausea/Vomiting Melatonin (Melatonin) 9 mg PO BEDTIME [facility] Last Admin: 10/30/17 00:24 Dose: 9 mg Methylprednisolone Sodium Succinate (Solu-Medrol) 62.5 mg IVPUSH Q6H [facility] Morphine Sulfate (Morphine) 2 mg IVPUSH Q2H PRN PRN Reason: Pain (severe 7-10) Ondansetron HCl (Zofran Odt) 4 mg PO Q6H PRN PRN Reason: Nausea able to take PO Ondansetron HCl (Zofran) 4 mg IV Q4H PRN PRN Reason: Nausea/Vomiting Simvastatin (Zocor) 40 mg PO BEDTIME [facility] Last Admin: 10/30/17 01:08 Dose: 40 mg Zolpidem Tartrate (Ambien) 5 mg PO BEDTIME PRN PRN Reason: Sleep Discontinued Medications Hydrocodone Bitart/Acetaminophen ([place] 325-5 Mg) 1 tab PO ONETIME ONE Stop: 10/29/17 18:43 Last Admin: 10/29/17 19:03 Dose: 1 tab Diphenoxylate HCl/Atropine (Lomotil 0.025-2.5 Mg) 1 tab PO ONETIME ONE Stop: 10/29/17 18:42 Last Admin: 10/29/17 19:02 Dose: 1 tab Famotidine (Pepcid) 20 mg IVPUSH ONETIME ONE Stop: 10/29/17 21:12 Last Admin: 10/29/17 22:04 Dose: 20 mg Sodium Chloride (Normal Saline) 100 mls @ 3.5 mls/sec IV ONETIME ONE Stop: 10/29/17 20:00 Last Admin: 10/29/17 20:19 Dose: 3.5 mls/sec Lactated Ringer's (Ringers, Lactated) 1,000 mls @ 1,000 mls/hr IV BOLUS ONE Stop: 10/29/17 21:19 Last Admin: 10/29/17 21:02 Dose: 1,000 mls/hr Ciprofloxacin/Dextrose 400 mg/ (Premix) 200 mls @ 200 mls/hr IV ONETIME ONE Stop: 10/29/17 22:10 Last Admin: 10/30/17 01:09 Dose: Not Given Metronidazole 500 mg/ Premix 100 mls @ 100 mls/hr IV ONETIME ONE Stop: 10/29/17 22:10 Last Admin: 10/29/17 22:31 Dose: 100 mls/hr Lactated Ringer's (Ringers, Lactated) 1,000 mls @ 150 mls/hr IV ASDIRECTED [facility] Last Admin: 10/29/17 22:03 Dose: 150 mls/hr Metronidazole (Flagyl 500 Mg In Ns 100 Ml) Confirm Administered Dose 100 mls @ as directed .ROUTE .STK-MED ONE Stop: 10/29/17 22:38 Last Admin: 10/29/17 22:41 Dose: Not Given Piperacillin Sod/Tazobactam (Sod 3.375 gm/ Sodium Chloride) 50 mls @ 100 mls/ hr IV Q6H [facility] Last Admin: 10/30/17 04:19 Dose: 100 mls/hr Sodium Chloride (Normal Saline) 1,000 mls @ 125 mls/hr IV ASDIRECTED [facility] Last Admin: 10/30/17 05:59 Dose: 125 mls/hr Iopamidol (Isovue-300 (61%)) 150 ml IV . DIRECTED [facility] Last Admin: 10/29/17 20:19 Dose: 110 ml Methylprednisolone Sodium Succinate (Solu-Medrol) 125 mg IVPUSH ONETIME ONE Stop: 10/30/17 07:31 Last Admin: 10/30/17 07:47 Dose: 125 mg Simvastatin (Zocor) Confirm Administered Dose 40 mg .ROUTE .STK-MED ONE Stop: 10/30/17 01:02 Last Admin: 10/30/17 01:08 Dose: Not Given Sodium Chloride (Saline Flush) 10 ml FLUSH ONETIME ONE Stop: 10/29/17 20:00 Last Admin: 10/29/17 20:19 Dose: 10 ml - Exam Quality Assessment: No: Supplemental Oxygen General: Alert, Oriented, Cooperative, No Acute Distress Lungs: Normal Respiratory Effort GI/Abdominal Exam: Soft, No Distention Extremities: No Pedal Edema Psy/Mental Status: Alert, Normal Affect - Problem List Review Problem List Initiated/Reviewed/Updated: Yes - My Orders Last 24 Hours: My Active Orders 10/30/17 08:52 CULTURE STOOL + SHIGATOX [RM] Routine WBC, STOOL [OP] Routine 10/30/17 12:00 Sodium Chloride 0.9% [Normal Saline] 1,000 ml IV ASDIRECTED 10/31/17 05:00 BASIC METABOLIC PANEL,BMP [CHEM] Timed CBC W/O DIFF,HEMOGRAM [HEME] Timed (1) - Plan Plan:: ASSESSMENT AND PLAN - Colitis - CT scan revealed inflammation in the descending and early part of the transverse colon at the hepatic flexure. Differential includes inflammatory versus infectious. She is not having fevers but infectious seems the most likely. No personal or family history of inflammatory bowel disease. Stool studies are still pending. -Gentle IV fluids -Antibiotic coverage with metronidazole and Pip/Tazo -IV Solumedrol 62.5mg IV every 6 hours -clear liquid diet -Follow-up stool studies including C. difficile, stool culture and fecal leukocytes -She will likely need a colonoscopy at some point unless a definitive diagnosis can be determined Essential hypertension - blood pressure currently normal but will need to be monitored closely with active infection. Usual medications will be continued unless blood pressure trends down. Maintenance issues - - DVT prophylaxis - enoxaparin - GI prophylaxis - famotidine - Nutrition - clear diet Disposition - anticipate discharge home after the hospital stay Primary care physician - Vega Teixeira M.D.
[2017-10-30] MEDS ORDERED: Sodium Chloride 0.9% 1,000 ML IV SCH (12:00)
[2017-10-30] MEDS: Fluticasone Propionate Nasal Spray 16 GM Bottle NASBOTH SCH (13:52)
[2017-10-30] MEDS: Calcium Carbonate/Vitamin D3 1500 MG-400 Units Tab PO SCH ×2 (13:52→20:14)
[2017-10-30] MEDS: Famotidine 20 MG/2 ML SDV IVPUSH SCH ×2 (13:53→20:15)
[2017-10-30] MEDS: Cetirizine 10 MG Tab PO SCH (13:53)
[2017-10-30] MEDS: methylPREDNISolone Sodium Succinate 125 MG/2 ML SDV IVPUSH SCH ×2 (13:54→20:13)
[2017-10-30] MEDS: amLODIPine 5 MG Tab PO SCH (13:54)
[2017-10-30] MEDS: Enoxaparin 40 MG/0.4 ML Syringe SUBCUT SCH (14:02)
[2017-10-31] MEDS: methylPREDNISolone Sodium Succinate 125 MG/2 ML SDV IVPUSH SCH ×2 (01:50→08:22)
[2017-10-31] MEDS: Piperacillin/Tazobactam/Dext 3.375 GM in Premix Bag 1 BAG IV SCH ×4 (03:58→22:08)
[2017-10-31] MEDS: metroNIDAZOLE/Normal Saline 500 MG in Premix Bag 1 BAG IV SCH ×3 (05:19→22:51)
[2017-10-31] MEDS: Acetaminophen/HYDROcodone 325-5 MG Tab PO PRN (06:34)
[2017-10-31] MEDS: Calcium Carbonate/Vitamin D3 1500 MG-400 Units Tab PO SCH ×2 (08:22→20:13)
[2017-10-31] MEDS: Enoxaparin 40 MG/0.4 ML Syringe SUBCUT SCH (08:22)
[2017-10-31] MEDS: amLODIPine 5 MG Tab PO SCH (08:22)
[2017-10-31] MEDS: Fluticasone Propionate Nasal Spray 16 GM Bottle NASBOTH SCH (08:22)
[2017-10-31] MEDS: Cetirizine 10 MG Tab PO SCH (08:23)
[2017-10-31] MEDS: Famotidine 20 MG/2 ML SDV IVPUSH SCH ×2 (08:24→20:13)
--- NOTE | 2017-10-31 12:04 | PCM.PN ---
- General Info Date of Service: 10/31/17 Subjective Update: Ms. Marroquin is a 72-year-old woman who is admitted with a recent history of right- sided abdominal pain associated with diarrhea. CT scan of the abdomen showed evidence of inflammation in the ascending colon and hepatic flexure. Since admission she has been treated with IV antibiotic therapy as well as IV Solu- Medrol. Symptoms have essentially resolved with only minimal residual abdominal pain and she has had no further diarrhea. Currently tolerating a diet without significant difficulty. Functional Status: Reports: Pain Controlled, Tolerating Diet, Urinating - Review of Systems General: Denies: Fever, Weakness, Chills Pulmonary: Reports: No Symptoms Cardiovascular: Reports: No Symptoms Gastrointestinal: Reports: No Symptoms - Patient Data Vitals - Most Recent: Last Vital Signs Temp 97.4 F 10/31/17 11:00 Pulse 67 10/31/17 11:00 Resp 16 10/31/17 11:00 BP 131/57 L 10/31/17 11:00 Pulse Ox 94 L 10/31/17 11:00 Weight - Most Recent: 163 lb 0.016 oz I&O - Last 24 Hours: Intake & Output 10/30/17 10/31/17 10/31/17 22:59 06:59 14:59 Intake Total 1570 1961 Output Total 1100 600 500 Balance 470 1361 -500 Lab Results Last 24 Hours: Laboratory Results - last 24 hr 10/31/17 10/31/17 Range/Units 05:53 05:53 WBC 13.8 H (4.5-11.0) K/uL RBC 4.42 (3.30-5.50) M/uL Hgb 12.7 (12.0-15.0) g/dL Hct 38.5 (36.0-48.0) % MCV 87 (80-98) fL MCH 29 (27-31) pg MCHC 33 (32-36) % Plt Count 242 (150-400) K/uL Sodium 140 (140-148) mmol/L Potassium 3.7 (3.6-5.2) mmol/L Chloride 107 (100-108) mmol/L Carbon Dioxide 25 (21-32) mmol/L Anion Gap 8.4 (5.0-14.0) mmol/L BUN 8 (7-18) mg/dL Creatinine 0.7 (0.6-1.0) mg/dL Est Cr Clr Drug Dosing 64.58 mL/min Estimated GFR (MDRD) > 60 (>60) Glucose 156 H (74-106) mg/dL Calcium 8.5 (8.5-10.1) mg/dL Med Orders - Current: Current Medications Hydrocodone Bitart/Acetaminophen ([place] 325-5 Mg) 1 tab PO Q4H PRN PRN Reason: Pain (moderate 4-6) Last Admin: 10/31/17 06:34 Dose: 1 tab Albuterol (Proventil Neb Soln) 2.5 mg NEB Q4H PRN PRN Reason: Shortness Of Breath/wheezing Amlodipine Besylate (Norvasc) 2.5 mg PO DAILY [facility] Last Admin: 10/31/17 08:22 Dose: 2.5 mg Bisacodyl (Dulcolax) 5 mg PO DAILY PRN PRN Reason: Constipation Calcium Carbonate (Caltrate 600+D 1500 Mg-400 Units) 1 tab PO BID [facility] Last Admin: 10/31/17 08:22 Dose: 1 tab Cetirizine HCl (Zyrtec) 10 mg PO DAILY [facility] Last Admin: 10/31/17 08:23 Dose: 10 mg Docusate Sodium (Colace) 100 mg PO BID PRN PRN Reason: Constipation Enoxaparin Sodium (Lovenox) 40 mg SUBCUT DAILY [facility] Last Admin: 10/31/17 08:22 Dose: Not Given Famotidine (Pepcid) 20 mg IVPUSH BID [facility] Last Admin: 10/31/17 08:24 Dose: 20 mg Fluticasone Propionate (Flonase) 0 gm NASBOTH DAILY [facility] Last Admin: 10/31/17 08:22 Dose: 2 sprays Metronidazole 500 mg/ Premix 100 mls @ 100 mls/hr IV Q8H [facility] Last Admin: 10/31/17 05:19 Dose: 100 mls/hr Piperacillin/Tazobactam/ (Dextrose 3.375 gm/ Premix) 50 mls @ 100 mls/hr IV Q6H [facility] Last Admin: 10/31/17 10:12 Dose: 100 mls/hr Lactobacillus Rhamnosus (Culturelle) 1 cap PO BID [facility] Lorazepam (Ativan) 1 mg IV Q6H PRN PRN Reason: Nausea/Vomiting Melatonin (Melatonin) 9 mg PO BEDTIME [facility] Last Admin: 10/30/17 20:14 Dose: 9 mg Morphine Sulfate (Morphine) 2 mg IVPUSH Q2H PRN PRN Reason: Pain (severe 7-10) Ondansetron HCl (Zofran Odt) 4 mg PO Q6H PRN PRN Reason: Nausea able to take PO Ondansetron HCl (Zofran) 4 mg IV Q4H PRN PRN Reason: Nausea/Vomiting Simvastatin (Zocor) 40 mg PO BEDTIME [facility] Last Admin: 10/30/17 20:15 Dose: 40 mg Zolpidem Tartrate (Ambien) 5 mg PO BEDTIME PRN PRN Reason: Sleep Discontinued Medications Hydrocodone Bitart/Acetaminophen ([place] 325-5 Mg) 1 tab PO ONETIME ONE Stop: 10/29/17 18:43 Last Admin: 10/29/17 19:03 Dose: 1 tab Diphenoxylate HCl/Atropine (Lomotil 0.025-2.5 Mg) 1 tab PO ONETIME ONE Stop: 10/29/17 18:42 Last Admin: 10/29/17 19:02 Dose: 1 tab Famotidine (Pepcid) 20 mg IVPUSH ONETIME ONE Stop: 10/29/17 21:12 Last Admin: 10/29/17 22:04 Dose: 20 mg Sodium Chloride (Normal Saline) 100 mls @ 3.5 mls/sec IV ONETIME ONE Stop: 10/29/17 20:00 Last Admin: 10/29/17 20:19 Dose: 3.5 mls/sec Lactated Ringer's (Ringers, Lactated) 1,000 mls @ 1,000 mls/hr IV BOLUS ONE Stop: 10/29/17 21:19 Last Admin: 10/29/17 21:02 Dose: 1,000 mls/hr Ciprofloxacin/Dextrose 400 mg/ (Premix) 200 mls @ 200 mls/hr IV ONETIME ONE Stop: 10/29/17 22:10 Last Admin: 10/30/17 01:09 Dose: Not Given Metronidazole 500 mg/ Premix 100 mls @ 100 mls/hr IV ONETIME ONE Stop: 10/29/17 22:10 Last Admin: 10/29/17 22:31 Dose: 100 mls/hr Lactated Ringer's (Ringers, Lactated) 1,000 mls @ 150 mls/hr IV ASDIRECTED [facility] Last Admin: 10/29/17 22:03 Dose: 150 mls/hr Metronidazole (Flagyl 500 Mg In Ns 100 Ml) Confirm Administered Dose 100 mls @ as directed .ROUTE .STK-MED ONE Stop: 10/29/17 22:38 Last Admin: 10/29/17 22:41 Dose: Not Given Piperacillin Sod/Tazobactam (Sod 3.375 gm/ Sodium Chloride) 50 mls @ 100 mls/ hr IV Q6H [facility] Last Admin: 10/30/17 04:19 Dose: 100 mls/hr Sodium Chloride (Normal Saline) 1,000 mls @ 125 mls/hr IV ASDIRECTED [facility] Last Admin: 10/30/17 05:59 Dose: 125 mls/hr Sodium Chloride (Normal Saline) 1,000 mls @ 75 mls/hr IV ASDIRECTED [facility] Last Admin: 10/30/17 15:48 Dose: 75 mls/hr Iopamidol (Isovue-300 (61%)) 150 ml IV . DIRECTED [facility] Last Admin: 10/29/17 20:19 Dose: 110 ml Methylprednisolone Sodium Succinate (Solu-Medrol) 125 mg IVPUSH ONETIME ONE Stop: 10/30/17 07:31 Last Admin: 10/30/17 07:47 Dose: 125 mg Methylprednisolone Sodium Succinate (Solu-Medrol) 62.5 mg IVPUSH Q6H [facility] Last Admin: 10/31/17 08:22 Dose: 62.5 mg Simvastatin (Zocor) Confirm Administered Dose 40 mg .ROUTE .STK-MED ONE Stop: 10/30/17 01:02 Last Admin: 10/30/17 01:08 Dose: Not Given Sodium Chloride (Saline Flush) 10 ml FLUSH ONETIME ONE Stop: 10/29/17 20:00 Last Admin: 10/29/17 20:19 Dose: 10 ml - Exam Quality Assessment: DVT Prophylaxis General: Alert, Oriented, Cooperative, No Acute Distress Lungs: Clear to Auscultation, Normal Respiratory Effort Cardiovascular: Regular Rate, Regular Rhythm, No Murmurs GI/Abdominal Exam: Soft, Non-Tender, No Organomegaly, No Distention Extremities: Non-Tender, No Pedal Edema Skin: Warm, Dry - Problem List Review Problem List Initiated/Reviewed/Updated: Yes - My Orders Last 24 Hours: My Active Orders 10/31/17 11:09 Convert IV to Saline Lock [OM.PC] Routine 10/31/17 12:00 Lactobacillus Rhamnosus GG [Culturelle] 1 cap PO BID 10/31/17 Lunch Soft Diet [DIET] - Plan Plan:: ASSESSMENT AND PLAN - Colitis - CT scan revealed inflammation in the ascending and early part of the transverse colon at the hepatic flexure. Differential includes inflammatory versus infectious. She is not having fevers but infectious seems the most likely. No personal or family history of inflammatory bowel disease. Stool studies are still pending, but she has had no diarrhea since admission. -Saline lock IV -Antibiotic coverage with metronidazole and Pip/Tazo -Discontinue IV Solu-Medrol -Soft low fiber diet -She will likely need a colonoscopy as an outpatient Essential hypertension - blood pressure currently normal but will need to be monitored closely with active infection. Usual medications will be continued unless blood pressure trends down. Maintenance issues - - DVT prophylaxis - enoxaparin - GI prophylaxis - famotidine - Nutrition - soft low residue diet Disposition - anticipate discharge home after the hospital stay Primary care physician - Vega Solo
[2017-10-31] MEDS: Lactobacillus Rhamnosus GG (Probiotic) Cap PO SCH ×2 (12:49→20:13)
[2017-10-31] MEDS: Simvastatin 20 MG Tab PO SCH (20:13)
[2017-10-31] MEDS: Melatonin 3 MG Tab PO SCH (20:13)
[2017-11-01] MEDS: Piperacillin/Tazobactam/Dext 3.375 GM in Premix Bag 1 BAG IV SCH ×2 (04:27→09:55)
[2017-11-01] MEDS: metroNIDAZOLE/Normal Saline 500 MG in Premix Bag 1 BAG IV SCH (05:11)
[2017-11-01] MEDS: amLODIPine 5 MG Tab PO SCH (08:08)
[2017-11-01] MEDS: Lactobacillus Rhamnosus GG (Probiotic) Cap PO SCH (08:08)
[2017-11-01] MEDS: Calcium Carbonate/Vitamin D3 1500 MG-400 Units Tab PO SCH (08:08)
[2017-11-01] MEDS: Cetirizine 10 MG Tab PO SCH (08:09)
[2017-11-01] MEDS: Fluticasone Propionate Nasal Spray 16 GM Bottle NASBOTH SCH (08:09)
[2017-11-01] MEDS: Famotidine 20 MG/2 ML SDV IVPUSH SCH (08:10)
[2017-11-01 11:09] VITALS: BP 145/67
--- NOTE | 2017-11-01 12:51 | PCM.DCSUM1 ---
Discharge Summary - Hospital Course Brief History: Ms. Marroquin is a 72-year-old woman who was admitted through the emergency department with a recent history of right-sided abdominal pain associated with diarrhea, secondary to colitis of the right colon. Diagnosis: Stroke: No - Discharge Data Discharge Date: 11/01/17 Discharge Disposition: Home, Self-Care 01 Condition: Fair - Discharge Diagnosis/Problem(s) (1) Colitis SNOMED Code(s): 68445887 ICD Code: K52.9 - NONINFECTIVE GASTROENTERITIS AND COLITIS, UNSPECIFIED Status: Acute Priority: High Current Visit: Yes (2) Pre-diabetes SNOMED Code(s): 434940393 ICD Code: R73.03 - PREDIABETES Status: Chronic Current Visit: No - Patient Summary/Data Consults: Consultations 10/29/17 23:32 Consult to Spiritual Care [CONS] Routine Hospital Course: 72 yo female presents with diarrhea and upper abdominal pain progressive over the past 3-4 days. No fever. Some blood in stool felt to be from her known hemorroids. No nausea or vomiting. No pHx of any abdominal surgeries. Had colonoscopy 2 yrs ago and no pathology was found. No known exposures. Took Imodium last about 0430h today, having about 4 diarrhea stools/day. On admission vital signs were stable and her white blood cell count was modestly elevated. CT scan of the abdomen and pelvis showed evidence of inflammation in the ascending colon and hepatic flexure. Differential included inflammatory bowel disease versus infection. She was given IV pain medication as needed for pain and IV fluids for hydration. Antibiotic therapy was initiated with Zosyn and Flagyl. She was also started on IV Solu-Medrol. On the day prior to discharge the Solu-Medrol was discontinued as it was felt unlikely that the inflammation was secondary to inflammatory bowel disease given the abrupt presentation. She was continued with the IV antibiotics up until the time of discharge. She will be discharged home with an additional 5 days of oral antibiotic therapy with ciprofloxacin and Flagyl. Probiotic therapy was initiated during hospitalization and she will be continued on this after discharge. She had tolerated a soft diet prior to discharge and had had no further diarrhea during the hospitalization. Because of the lack of diarrhea we were unable to obtain stool studies for further evaluation. She will remain on a soft low residue diet for a period of 10 days. I suggested that she have a colonoscopy for follow-up in the next 14-28 days. Follow-up appointment has been scheduled with her primary care physician. Activity will be as tolerated. - Patient Instructions Diet: GI Soft/Low Residue/Low Fiber (10 days) Activity: As Tolerated Other/Special Instructions: Consider further evaluation with colonoscopy in 14- 28 days. - Discharge Plan *PRESCRIPTION DRUG MONITORING PROGRAM REVIEWED*: Not Applicable *COPY OF PRESCRIPTION DRUG MONITORING REPORT IN PATIENT CHANA: Not Applicable Prescriptions/Med Rec: Ciprofloxacin HCl [Cipro] 500 mg PO BID #10 tablet Lactobacillus Rhamnosus GG [Culturelle] 1 cap PO BID #60 cap metroNIDAZOLE [Flagyl] 500 mg PO Q8H #15 tab Home Medications: Home Meds Calcium Carbonate/Vitamin D3 [Calcium 500 + Vit D Caplet] 1 each PO BID [History] Loratadine [Claritin] 10 mg PO DAILY 09/30/13 [History] Simvastatin 40 mg PO DAILY 09/30/13 [History] Fluticasone Propionate [Flonase] 2 spray NASBOTH DAILY 08/24/15 [History] Cetirizine [ZyrTEC] 10 mg PO DAILY 09/01/15 [History] Triamcinolone Acetonide [Triamcinolone Acetonide 0.5% Oint] 1 cm TOP BID [History] Biotin 10 mg PO DAILY 03/28/17 [History] Ubidecarenone/Vitamin E Mixed [Uzz14-Uci E 200 mg-20 Unit Sfg] 200 mg PO DAILY 03/28/17 [History] amLODIPine [Norvasc] 1 tab PO DAILY 10/29/17 [History] Ciprofloxacin HCl [Cipro] 500 mg PO BID #10 tablet 11/01/17 [Rx] Lactobacillus Rhamnosus GG [Culturelle] 1 cap PO BID #60 cap 11/01/17 [Rx] metroNIDAZOLE [Flagyl] 500 mg PO Q8H #15 tab 11/01/17 [Rx] Patient Handouts: Colitis Forms: ED Department Discharge Referrals: Marni Lisa RN [Registered Nurse] - 11/07/17 3:00 pm Vega Solo MD [Primary Care Provider] - 11/08/17 9:40 am - Discharge Summary/Plan Comment DC Time >30 min.: No - Patient Data Vitals - Most Recent: Last Vital Signs Temp 97.2 F 11/01/17 11:07 Pulse 59 L 11/01/17 11:07 Resp 16 11/01/17 11:07 BP 145/67 H 11/01/17 11:07 Pulse Ox 97 11/01/17 11:07 Weight - Most Recent: 163 lb 0.016 oz I&O - Last 24 hours: Intake & Output 10/31/17 11/01/17 11/01/17 22:59 06:59 14:59 Intake Total 680 300 480 Output Total 1200 1125 Balance -520 -825 480 Med Orders - Current: Current Medications Hydrocodone Bitart/Acetaminophen ([place] 325-5 Mg) 1 tab PO Q4H PRN PRN Reason: Pain (moderate 4-6) Last Admin: 10/31/17 06:34 Dose: 1 tab Albuterol (Proventil Neb Soln) 2.5 mg NEB Q4H PRN PRN Reason: Shortness Of Breath/wheezing Amlodipine Besylate (Norvasc) 2.5 mg PO DAILY [facility] Last Admin: 11/01/17 08:08 Dose: 2.5 mg Bisacodyl (Dulcolax) 5 mg PO DAILY PRN PRN Reason: Constipation Calcium Carbonate (Caltrate 600+D 1500 Mg-400 Units) 1 tab PO BID [facility] Last Admin: 11/01/17 08:08 Dose: 1 tab Cetirizine HCl (Zyrtec) 10 mg PO DAILY [facility] Last Admin: 11/01/17 08:09 Dose: 10 mg Docusate Sodium (Colace) 100 mg PO BID PRN PRN Reason: Constipation Famotidine (Pepcid) 20 mg IVPUSH BID [facility] Last Admin: 11/01/17 08:10 Dose: 20 mg Fluticasone Propionate (Flonase) 0 gm NASBOTH DAILY [facility] Last Admin: 11/01/17 08:09 Dose: 2 sprays Metronidazole 500 mg/ Premix 100 mls @ 100 mls/hr IV Q8H [facility] Last Admin: 11/01/17 05:11 Dose: 100 mls/hr Piperacillin/Tazobactam/ (Dextrose 3.375 gm/ Premix) 50 mls @ 100 mls/hr IV Q6H [facility] Last Admin: 11/01/17 09:55 Dose: 100 mls/hr Lactobacillus Rhamnosus (Culturelle) 1 cap PO BID [facility] Last Admin: 11/01/17 08:08 Dose: 1 cap Lorazepam (Ativan) 1 mg IV Q6H PRN PRN Reason: Nausea/Vomiting Melatonin (Melatonin) 9 mg PO BEDTIME [facility] Last Admin: 10/31/17 20:13 Dose: 9 mg Morphine Sulfate (Morphine) 2 mg IVPUSH Q2H PRN PRN Reason: Pain (severe 7-10) Ondansetron HCl (Zofran Odt) 4 mg PO Q6H PRN PRN Reason: Nausea able to take PO Ondansetron HCl (Zofran) 4 mg IV Q4H PRN PRN Reason: Nausea/Vomiting Simvastatin (Zocor) 40 mg PO BEDTIME [facility] Last Admin: 10/31/17 20:13 Dose: 40 mg Zolpidem Tartrate (Ambien) 5 mg PO BEDTIME PRN PRN Reason: Sleep Discontinued Medications Hydrocodone Bitart/Acetaminophen ([place] 325-5 Mg) 1 tab PO ONETIME ONE Stop: 10/29/17 18:43 Last Admin: 10/29/17 19:03 Dose: 1 tab Diphenoxylate HCl/Atropine (Lomotil 0.025-2.5 Mg) 1 tab PO ONETIME ONE Stop: 10/29/17 18:42 Last Admin: 10/29/17 19:02 Dose: 1 tab Enoxaparin Sodium (Lovenox) 40 mg SUBCUT DAILY [facility] Last Admin: 10/31/17 08:22 Dose: Not Given Famotidine (Pepcid) 20 mg IVPUSH ONETIME ONE Stop: 10/29/17 21:12 Last Admin: 10/29/17 22:04 Dose: 20 mg Sodium Chloride (Normal Saline) 100 mls @ 3.5 mls/sec IV ONETIME ONE Stop: 10/29/17 20:00 Last Admin: 10/29/17 20:19 Dose: 3.5 mls/sec Lactated Ringer's (Ringers, Lactated) 1,000 mls @ 1,000 mls/hr IV BOLUS ONE Stop: 10/29/17 21:19 Last Admin: 10/29/17 21:02 Dose: 1,000 mls/hr Ciprofloxacin/Dextrose 400 mg/ (Premix) 200 mls @ 200 mls/hr IV ONETIME ONE Stop: 10/29/17 22:10 Last Admin: 10/30/17 01:09 Dose: Not Given Metronidazole 500 mg/ Premix 100 mls @ 100 mls/hr IV ONETIME ONE Stop: 10/29/17 22:10 Last Admin: 10/29/17 22:31 Dose: 100 mls/hr Lactated Ringer's (Ringers, Lactated) 1,000 mls @ 150 mls/hr IV ASDIRECTED [facility] Last Admin: 10/29/17 22:03 Dose: 150 mls/hr Metronidazole (Flagyl 500 Mg In Ns 100 Ml) Confirm Administered Dose 100 mls @ as directed .ROUTE .STK-MED ONE Stop: 10/29/17 22:38 Last Admin: 10/29/17 22:41 Dose: Not Given Piperacillin Sod/Tazobactam (Sod 3.375 gm/ Sodium Chloride) 50 mls @ 100 mls/ hr IV Q6H [facility] Last Admin: 10/30/17 04:19 Dose: 100 mls/hr Sodium Chloride (Normal Saline) 1,000 mls @ 125 mls/hr IV ASDIRECTED [facility] Last Admin: 10/30/17 05:59 Dose: 125 mls/hr Sodium Chloride (Normal Saline) 1,000 mls @ 75 mls/hr IV ASDIRECTED [facility] Last Admin: 10/30/17 15:48 Dose: 75 mls/hr Iopamidol (Isovue-300 (61%)) 150 ml IV . DIRECTED [facility] Last Admin: 10/29/17 20:19 Dose: 110 ml Methylprednisolone Sodium Succinate (Solu-Medrol) 125 mg IVPUSH ONETIME ONE Stop: 10/30/17 07:31 Last Admin: 10/30/17 07:47 Dose: 125 mg Methylprednisolone Sodium Succinate (Solu-Medrol) 62.5 mg IVPUSH Q6H [facility] Last Admin: 10/31/17 08:22 Dose: 62.5 mg Simvastatin (Zocor) Confirm Administered Dose 40 mg .ROUTE .STK-MED ONE Stop: 10/30/17 01:02 Last Admin: 10/30/17 01:08 Dose: Not Given Sodium Chloride (Saline Flush) 10 ml FLUSH ONETIME ONE Stop: 10/29/17 20:00 Last Admin: 10/29/17 20:19 Dose: 10 ml - Exam General: Reports: Alert, Oriented, Cooperative, No Acute Distress Lungs: Reports: Clear to Auscultation, Normal Respiratory Effort Cardiovascular: Reports: Regular Rate, Regular Rhythm, No Murmurs GI/Abdominal Exam: Soft, Non-Tender, No Organomegaly, No Distention Back Exam: Reports: Normal Inspection, Full Range of Motion Extremities: Non-Tender, No Pedal Edema
== END 2017-11-01 14:10 | disposition home or self-care (01) | DRG 392 ==
LOC: JP.ED 17:12 → JP.MS 22:58
PROVIDERS: ADMIT Internal Medicine; ATTEND Hospitalist
DX: K52.9 Noninfective gastroenteritis and colitis, unspecified (principal); I10 Essential (primary) hypertension; E78.00 Pure hypercholesterolemia, unspecified; K21.9 Gastro-esophageal reflux disease without esophagitis; E61.1 Iron deficiency; R73.03 Prediabetes; Z88.8 Allergy status to other drugs, medicaments and biological substances; Z91.040 Latex allergy status; Z88.2 Allergy status to sulfonamides; Z79.899 Other long term (current) drug therapy; Z87.891 Personal history of nicotine dependence
CPT/HCPCS: 36415; 74177; 80053; 83690; 85027; 86140; 96361; 96365; 96375; 99285; A9270 ×2; J7030; J7050; J7120 ×2; 80048; 85025; J1650; J2543; J2930; S0028

== ENCOUNTER 2018-01-07 14:46 | Emergency (ER) | payer MEDICARE, OTHER ==
[2018-01-07 14:59] VITALS: BP 161/83
--- NOTE | 2018-01-07 15:33 | EDM.PDOC ---
ED HPI GENERAL MEDICAL PROBLEM - General Chief Complaint: Neuro Symptoms/Deficits Stated Complaint: VERY CONFUSED, NAUSEATED, HEADACHE Time Seen by Provider: 01/07/18 15:15 Source of Information: Reports: Patient, Family, Old Records, RN History Limitations: Reports: No Limitations - History of Present Illness INITIAL COMMENTS - FREE TEXT/NARRATIVE: 72 yo female presents accompanied by her after abrupt onset of acute mild confusion just after noon today. She seems to have cleared mostly since then. Has been having fairly persistent L sided FERRER's lately, including today. No hx of CVA, TIA, migraine, aneurysms, or afib. Was to the clinic recently complaining of allergy sx's and FERRER's and was referred to an morning show producer. Has not had this appt yet. Onset: Today Onset Date: 01/07/18 Onset Time: 12:20 Duration: Hour(s): (3), Improving Location: Reports: Head Quality: Reports: Ache Severity: Mild Improves with: Reports: None Worsens with: Reports: None (Patient thinks the FERRER is related to allergic rhinitis) Context: Reports: Other (uncertain) Associated Symptoms: Reports: Confusion, Headaches. Denies: Diaphoresis, Fever/ Chills, Nausea/Vomiting, Syncope Treatments ELEMENTARY ART TEACHER: Reports: Other (see below) (none) Head Pain Score (Numeric/FACES): 4 - Related Data Allergies Allergy/AdvReac Type Severity Reaction Status Date / Time acetaminophen [From NyQuil] Allergy Cannot Verified 10/29/17 18:24 Remember ciprofloxacin [From Cipro] Allergy Cannot Verified 11/01/17 13:22 Remember clindamycin Allergy Cannot Verified 10/29/17 18:24 Remember dextromethorphan HBr Allergy Cannot Verified 10/29/17 18:24 [From NyQuil] Remember doxylamine succinate Allergy Cannot Verified 10/29/17 18:24 [From NyQuil] Remember ibuprofen Allergy Cannot Verified 10/29/17 18:24 [From DayQuil Sinus Remember Pressure/Pain] latex Allergy Cannot Verified 10/29/17 18:24 Remember meclizine Allergy Cannot Verified 10/29/17 18:24 Remember meclizine HCl [From Antivert] Allergy Cannot Verified 10/29/17 18:24 Remember pseudoephedrine HCl Allergy Cannot Verified 10/29/17 18:24 [From DayQuil Sinus Remember Pressure/Pain] Sulfa (Sulfonamide Allergy Cannot Verified 10/29/17 18:24 Antibiotics) Remember sulfamethoxazole Allergy Cannot Verified 10/29/17 18:24 [From ] Remember trimethoprim [From ] Allergy Cannot Verified 10/29/17 18:24 Remember Home Meds: Home Meds Calcium Carbonate/Vitamin D3 [Calcium 500 + Vit D Caplet] 1 each PO BID [History] Loratadine [Claritin] 10 mg PO DAILY 09/30/13 [History] Simvastatin 40 mg PO DAILY 09/30/13 [History] Fluticasone Propionate [Flonase] 2 spray NASBOTH DAILY 08/24/15 [History] Cetirizine [ZyrTEC] 10 mg PO DAILY 09/01/15 [History] Triamcinolone Acetonide [Triamcinolone Acetonide 0.5% Oint] 1 cm TOP BID [History] Biotin 10 mg PO DAILY 03/28/17 [History] Ubidecarenone/Vitamin E Mixed [Ndo72-Ahl E 200 mg-20 Unit Sfg] 200 mg PO DAILY 03/28/17 [History] amLODIPine [Norvasc] 2.5 tab PO DAILY 10/29/17 [History] Amoxicillin/Potassium Clav [Augmentin 875-125 Tablet] 1 each PO BID #10 tablet 11/01/17 [Rx] Lactobacillus Rhamnosus GG [Culturelle] 1 cap PO BID #60 cap 11/01/17 [Rx] metroNIDAZOLE [Flagyl] 500 mg PO Q8H #15 tab 11/01/17 [Rx] Past Medical History HEENT History: Reports: Allergic Rhinitis, Impaired Vision, Other (See Below) Other HEENT History: hearing aid L ear Cardiovascular History: Reports: High Cholesterol, Hypertension 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: GERD, Other (See Below) Other Gastrointestinal History: yesterday frq stools and 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: Musculoskeletal History: Reports: Arthritis, Other (See Below) Other Musculoskeletal History: foot surg Neurological History: Reports: Vertigo Other Neuro History: concusion tingling Endocrine/Metabolic History: Reports: Other (See Below) Other Endocrine/Metabolic History: prediabetic Hematologic History: Reports: Iron Deficiency - Infectious Disease History Infectious Disease History: Reports: Chicken Pox, Measles, Mumps - Past Surgical History Female Surgical History: Reports: Tubal Ligation Social & Family History - Family History Family Medical History: Noncontributory - Tobacco Use Smoking Status *Q: Never Smoker - Caffeine Use Caffeine Use: Reports: None - Recreational Drug Use Recreational Drug Use: No - Living Situation & Occupation Living situation: Reports: (lives in [place] with .) ED ROS GENERAL - Review of Systems Review Of Systems: See Below Constitutional: Reports: No Symptoms HEENT: Reports: Rhinitis Respiratory: Reports: No Symptoms Cardiovascular: Reports: No Symptoms GI/Abdominal: Reports: No Symptoms : Reports: No Symptoms Musculoskeletal: Reports: No Symptoms Skin: Reports: No Symptoms Neurological: Reports: Confusion, Headache. Denies: Dizziness, Numbness, Paresthesia, Seizure, Syncope, Tingling, Trouble Speaking, Difficulty Walking, Change in Speech, Gait Disturbance Psychiatric: Reports: No Symptoms ED EXAM, NEURO - Physical Exam Exam: See Below Exam Limited By: No Limitations General Appearance: Alert, WD/WN, No Apparent Distress Eye Exam: Bilateral Eye: EOMI, Normal Inspection Ears: Normal External Exam, Normal Canal, Hearing Grossly Normal, Normal TMs, Other (hearing aid on left) Throat/Mouth: Normal Inspection, Normal Lips, Normal Oropharynx, Normal Voice, No Airway Compromise Head Exam: Atraumatic, Normocephalic Neck: Normal Inspection, Supple Respiratory/Chest: No Respiratory Distress, Lungs Clear, Normal Breath Sounds, No Accessory Muscle Use Cardiovascular: Regular Rate, Rhythm, No Edema GI/Abdominal: Soft Neurological: Alert, Normal Dorsiflexion, CN II-XII Intact, Normal Plantar Flexion, Normal Reflexes, No Motor/Sensory Deficits, Oriented x 3. No: Abnormal Motor, Difficulty Walking DTR: 2+: Bicep (R), Bicep (L), Patella (R), Patella (L), Achilles (R), Achilles (L) Back Exam: Normal Inspection Extremities: Normal Inspection, Normal Range of Motion, Non-Tender, No Pedal Edema Psychiatric: Depressed Mood, Flat Affect. No: Anxious, Tearful Skin Exam: Warm, Dry, Intact, Normal Color, No Rash Course - Vital Signs Last Recorded V/S: Last Vital Signs Temp 36.8 C 01/07/18 14:58 Pulse 64 01/07/18 14:58 Resp 18 01/07/18 14:58 BP 161/83 H 01/07/18 14:58 Pulse Ox - Orders/Labs/Meds Orders: Active Orders 24 hr Category Date Time Status Head wo Cont [CT] Stat Exams 01/07/18 15:20 Taken Labs: Laboratory Tests 01/07/18 01/07/18 01/07/18 Range/Units 15:20 15:33 15:33 WBC 11.1 H (4.5-11.0) K/uL RBC 4.79 (3.30-5.50) M/uL Hgb 13.6 (12.0-15.0) g/dL Hct 42.4 (36.0-48.0) % MCV 89 (80-98) fL MCH 28 (27-31) pg MCHC 32 (32-36) % Plt Count 274 (150-400) K/uL Sodium 137 L (140-148) mmol/L Potassium 4.4 (3.6-5.2) mmol/L Chloride 102 (100-108) mmol/L Carbon Dioxide 30 (21-32) mmol/L Anion Gap 9.4 (5.0-14.0) mmol/L BUN 19 H D (7-18) mg/dL Creatinine 0.7 (0.6-1.0) mg/dL Est Cr Clr Drug Dosing 64.58 mL/min Estimated GFR (MDRD) > 60 (>60) Glucose 95 (74-106) mg/dL Calcium 9.2 (8.5-10.1) mg/dL Troponin I (0.000-0.056) ng/mL Urine Color Yellow Urine Appearance Clear Urine pH 7.0 (4.5-8.0) Ur Specific [place] 1.010 (1.008-1.030) Urine Protein Negative (NEGATIVE) mg/dL Urine Glucose (UA) Normal (NEGATIVE) mg/dL Urine Ketones Negative (NEGATIVE) mg/dL Urine Occult Blood Negative (NEGATIVE) Urine Nitrite Negative (NEGATIVE) Urine Bilirubin Negative (NEGATIVE) Urine Urobilinogen Normal (NORMAL) mg/dL Ur Leukocyte Esterase Negative (NEGATIVE) Urine RBC 0-5 (0-5) Urine WBC Not seen (0-5) Ur Epithelial Cells Not seen Amorphous Sediment Not seen Urine Bacteria Rare Urine Mucus Not seen 01/07/18 Range/Units 15:33 WBC (4.5-11.0) K/uL RBC (3.30-5.50) M/uL Hgb (12.0-15.0) g/dL Hct (36.0-48.0) % MCV (80-98) fL MCH (27-31) pg MCHC (32-36) % Plt Count (150-400) K/uL Sodium (140-148) mmol/L Potassium (3.6-5.2) mmol/L Chloride (100-108) mmol/L Carbon Dioxide (21-32) mmol/L Anion Gap (5.0-14.0) mmol/L BUN (7-18) mg/dL Creatinine (0.6-1.0) mg/dL Est Cr Clr Drug Dosing mL/min Estimated GFR (MDRD) (>60) Glucose (74-106) mg/dL Calcium (8.5-10.1) mg/dL Troponin I < 0.017 (0.000-0.056) ng/mL Urine Color Urine Appearance Urine pH (4.5-8.0) Ur Specific [place] (1.008-1.030) Urine Protein (NEGATIVE) mg/dL Urine Glucose (UA) (NEGATIVE) mg/dL Urine Ketones (NEGATIVE) mg/dL Urine Occult Blood (NEGATIVE) Urine Nitrite (NEGATIVE) Urine Bilirubin (NEGATIVE) Urine Urobilinogen (NORMAL) mg/dL Ur Leukocyte Esterase (NEGATIVE) Urine RBC (0-5) Urine WBC (0-5) Ur Epithelial Cells Amorphous Sediment Urine Bacteria Urine Mucus - Radiology Interpretation Free Text/Narrative:: Head CT-neg CT Results Date: 01/07/18 CT Results Time: 16:10 Departure - Departure Time of Disposition: 16:17 Disposition: Home, Self-Care 01 Condition: Fair Clinical Impression: Transient confusion HTN (hypertension) Qualifiers: Hypertension type: essential hypertension Qualified Code(s): I10 - Essential ( primary) hypertension - Discharge Information *PRESCRIPTION DRUG MONITORING PROGRAM REVIEWED*: Not Applicable *COPY OF PRESCRIPTION DRUG MONITORING REPORT IN PATIENT CHANA: Not Applicable Instructions: Confusion, Hypertension, [id number] Referrals: Vega Solo MD [Primary Care Provider] - Forms: ED Department Discharge Additional Instructions: Continue your current medications. Check your BP regularly at different times each day and keep a log for your provider. Recheck with your provider next week. Return here if worse. - My Orders Last 24 Hours: My Active Orders 01/07/18 15:20 Head wo Cont [CT] Stat - Assessment/Plan Last 24 Hours: My Active Orders 01/07/18 15:20 Head wo Cont [CT] Stat
== END 2018-01-07 16:24 | disposition home or self-care (01) ==
LOC: JP.ED 14:46
DX: R41.0 Disorientation, unspecified (principal); I10 Essential (primary) hypertension; Z79.899 Other long term (current) drug therapy; Z88.1 Allergy status to other antibiotic agents; Z88.2 Allergy status to sulfonamides; Z88.8 Allergy status to other drugs, medicaments and biological substances
CPT/HCPCS: 36415; 70450; 80048; 81001; 84484; 85027; 99284-25

== ENCOUNTER 2020-09-08 06:52 | Day surgery (SDC) | payer MEDICARE, OTHER ==
[2020-09-08] MEDS ORDERED: fentaNYL 100 MCG/2 ML SDV ONE (07:19)
[2020-09-08] MEDS ORDERED: Propofol 200 MG/20 ML SDV ONE (07:19)
[2020-09-08] MEDS ORDERED: Midazolam 1 MG/ML 2 ML SDV ONE (07:19)
[2020-09-08] MEDS ORDERED: Sodium Chloride 0.9% 1,000 ML IV SCH (08:00)
[2020-09-08 11:10] VITALS: BP 118/69; PULSE 61
--- NOTE | 2020-09-08 15:53 | OR ---
DATE OF PROCEDURE: 09/08/2020 SURGEON: Abdon Santiago MD PROCEDURE: Colonoscopy. FINDINGS: 1. Significantly tortuous sigmoid colon. 2. No other gross abnormalities. 3. Diverticulosis, very mild, limited to sigmoid colon. COMPLICATIONS: None. COMPUTING ARCHITECT: None. ANESTHESIA: MAC. PREOPERATIVE DIAGNOSES: Screening colonoscopy/history of colon polyps. POSTOPERATIVE DIAGNOSES: Screening colonoscopy/history of colon polyps. RISKS: Risks, benefits, alternatives, and limitations including but not limited to infection, bleeding, perforation, and false positives and false negatives were explained to the patient who wished to proceed. PROCEDURE IN DETAIL: The patient was placed in left lateral decubitus position. Digital rectal exam was performed without abnormality. Scope was introduced and advanced atraumatically to the ileocecal valve. A photo was taken of this. Scope was brought back to the ascending, transverse, and descending colon and retroflexed. The patient was noted to have a very tortuous colon within the sigmoid colon. This was able to be transversed and at no time was the scope blindly advanced or undue pressure applied. The patient did have diverticulosis described as mild, limited to sigmoid colon without evidence of diverticulitis or bleeding. No abnormalities on retroflexion. No polyps. No evidence of colitis or any inflammatory or irritable bowel disease. No abnormalities on retroflexion. Greater than 8 minutes was spent removing the scope. The prep was acceptable, approximately 90% of luminal surface could be seen. The patient tolerated the procedure well. Abdon Santiago MD /[id number]
== END 2020-09-08 11:10 | disposition home or self-care (01) ==
LOC: JP.SDS 06:52
PROVIDERS: ATTEND Surgery
DX: Z12.11 Encounter for screening for malignant neoplasm of colon (principal); K57.30 Diverticulosis of large intestine without perforation or abscess without bleeding; K63.89 Other specified diseases of intestine; Z86.010 Personal history of colon polyps
CPT/HCPCS: J2250; J2704; J3010; J7030

== ENCOUNTER 2021-04-06 12:07 | Emergency (ER) | payer MEDICARE, OTHER ==
[2021-04-06 12:59] VITALS: BP 166/73; PULSE 62
--- NOTE | 2021-04-06 13:02 | EDM.PDOC ---
ED HPI GENERAL MEDICAL PROBLEM - General Chief Complaint: Syncope Stated Complaint: MED[facility] Time Seen by Provider: 04/06/21 12:30 Source of Information: Reports: Patient, Family History Limitations: Reports: No Limitations - History of Present Illness INITIAL COMMENTS - FREE TEXT/NARRATIVE: 75-year-old female was over at the [facility] across the street ge tting a blood draw, when she became lightheaded and felt like she was going to faint. She is very sensitive to blood draws, told the nurses they had "1 try". They were unsuccessful on the first try and were trying a second time when she became symptomatic. They later on the floor and followed her blood pressure and when it did not rebound significantly and she was still lightheaded after 30 min utes they called the ambulance. They did not call us to tell us why she was at the clinic, what blood draws she was getting or what kind of history she had. We tried to contact them but they would not answer. Patient himself is now feeling much better, still a little weak and woozy but no longer diaphoretic. She had no shortness of breath or palpitations. She has some chronic headache issues and chronic abdominal pain issues and they are following her apparently for an upcoming cholecystectomy. Onset: Sudden Duration: Hour(s): (Within the last hour she developed the vagal symptoms while getting a blood draw) Associated Symptoms: Reports: Headaches, Malaise, Weakness. Denies: Confusion, Chest Pain, Fever/Chills, Shortness of Breath - Related Data Allergies Allergy/AdvReac Type Severity Reaction Status Date / Time ciprofloxacin [From Cipro] Allergy Cannot Verified 09/08/20 08:08 Remember clindamycin Allergy Cannot Verified 09/08/20 08:08 Remember dextromethorphan HBr Allergy Cannot Verified 09/08/20 08:08 [From NyQuil] Remember doxylamine succinate Allergy Cannot Verified 09/08/20 08:08 [From NyQuil] Remember latex Allergy Cannot Verified 09/08/20 08:08 Remember meclizine Allergy Cannot Verified 09/08/20 08:08 Remember meclizine HCl [From Antivert] Allergy Cannot Verified 09/08/20 08:08 Remember ondansetron Allergy Vomiting Verified 04/06/21 12:26 pseudoephedrine HCl Allergy Cannot Verified 09/08/20 08:08 [From DayQuil Sinus Remember Pressure/Pain] Sulfa (Sulfonamide Allergy Cannot Verified 09/08/20 08:08 Antibiotics) Remember sulfamethoxazole Allergy Cannot Verified 09/08/20 08:08 [From ] Remember trimethoprim [From ] Allergy Cannot Verified 09/08/20 08:08 Remember Home Meds: Home Meds Simvastatin 40 mg PO DAILY 09/30/13 [History] Fluticasone Propionate [Flonase] 2 spray NASBOTH DAILY 08/24/15 [History] Triamcinolone Acetonide [Triamcinolone Acetonide 0.5% Oint] 1 cm TOP BID 09/01/15 [History] Biotin 10 mg PO DAILY 03/28/17 [History] Ubidecarenone/Vitamin E Mixed [Wlg21-Fsd E 200 mg-20 Unit Sfg] 200 mg PO DAILY 03/28/17 [History] Lactobacillus Rhamnosus GG [Culturelle] 1 cap PO BID #60 cap 11/01/17 [Rx] Cetirizine HCl 10 mg PO DAILY 09/04/20 [History] Cholecalciferol (Vitamin D3) [Vitamin D3] 25 mcg PO DAILY 09/04/20 [History] Magnesium 500 mg PO DAILY 09/04/20 [History] Melatonin 10 mg PO DAILY 09/04/20 [History] Past Medical History HEENT History: Reports: Allergic Rhinitis, Impaired Vision, Other (See Below) Other HEENT History: hearing aid L ear Cardiovascular History: Reports: High Cholesterol, Hypertension Respiratory History: Reports: None 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: GERD, Other (See Below) Other Gastrointestinal History: yesterday frq stools and emeseis [employer] History: Reports: Musculoskeletal History: Reports: Arthritis, Other (See Below) Other Musculoskeletal History: foot surg Neurological History: Reports: Vertigo Other Neuro History: concusion tingling Psychiatric History: Reports: None Endocrine/Metabolic History: Reports: Other (See Below) Other Endocrine/Metabolic History: prediabetic Hematologic History: Reports: Iron Deficiency Immunologic History: Reports: None Oncologic (Cancer) History: Reports: None - Infectious Disease History Infectious Disease History: Reports: Chicken Pox, Measles, Mumps - Past Surgical History Head Surgeries/Procedures: Reports: None HEENT Surgical History: Reports: None Cardiovascular Surgical History: Reports: None GI Surgical History: Reports: Colonoscopy Female Surgical History: Reports: Tubal Ligation Neurological Surgical History: Reports: None Social & Family History - Family History Family Medical History: No Pertinent Family History HEENT: Reports: Hearing Impairment, Impaired Vision Cardiac: Reports: None Respiratory: Reports: None GI: Reports: Colon Polyps : Reports: None OBGYN: Reports: None Musculoskeletal: Reports: Arthritis - Tobacco Use Tobacco Use Status *Q: Never Tobacco User - Caffeine Use Caffeine Use: Reports: Coffee - Living Situation & Occupation Living situation: Reports: (lives in [place] with .) ED ROS GENERAL - Review of Systems Review Of Systems: See Below Constitutional: Reports: Malaise. Denies: Fever, Chills HEENT: Reports: No Symptoms Respiratory: Denies: Shortness of Breath, Cough Cardiovascular: Denies: Chest Pain GI/Abdominal: Reports: Abdominal Pain. Denies: Constipation, Diarrhea, Vomiting : Reports: No Symptoms Musculoskeletal: Reports: No Symptoms Skin: Reports: Pallor, Diaphoresis Neurological: Reports: Headache, Weakness, Other (Near syncope) - Physical Exam Exam: See Below Exam Limited By: No Limitations General Appearance: Alert, No Apparent Distress Eye Exam: Bilateral Eye: Normal Inspection Head Exam: Atraumatic Neck: Supple, Non-Tender Respiratory/Chest: Lungs Clear Cardiovascular: Regular Rate, Rhythm GI/Abdominal: Soft, Other (Some discomfort with palpation across the upper abdomen but no focal guarding or rebound) Neuro Exam (Abbreviated): Alert, Oriented, No Motor/Sensory Deficits, Other (Orthostatics are now stable) Extremities: Normal Inspection. No: Pedal Edema Psychiatric: Anxious Skin Exam: Warm, Dry Course - Vital Signs Last Recorded V/S: Last Vital Signs Temp Pulse 62 04/06/21 12:58 Resp 22 H 04/06/21 12:58 BP 166/73 H 04/06/21 12:58 Pulse Ox 100 04/06/21 12:58 - Re-Assessments/Exams Free Text/Narrative Re-Assessment/Exam: 04/06/21 13:15 She has medical work-ups in place for several issues, this is a very straightforward vasovagal episode related to her procedure. She is comfortable going home and staying hydrated, and following up if symptoms recur or are persistent. Departure - Departure Time of Disposition: 13:08 Disposition: Home, Self-Care 01 Clinical Impression: Vasovagal near syncope - Discharge Information Instructions: Near-Syncope Referrals: Vega Solo MD [Primary Care Provider] - Forms: ED Department Discharge Care Plan Goals: Stay hydrated, continue any of your current medications, and recheck as needed to finish your evaluation for your gallbladder and migraine headaches. Return to the emergency room if symptoms recur especially if persistent. Sepsis Event Note (ED) - Evaluation Sepsis Screening Result: No Definite Risk - Focused Exam Vital Signs: Vital Signs Pulse Resp BP Pulse Ox 04/06/21 12:58 62 22 H 166/73 H 100 04/06/21 12:24 54 L 171/66 H 04/06/21 12:22 52 L 18 170/65 H 99 04/06/21 12:16 56 L 16 167/66 H 100
== END 2021-04-06 13:21 | disposition home or self-care (01) ==
LOC: JP.ED 12:07
DX: R55 Syncope and collapse (principal); E78.00 Pure hypercholesterolemia, unspecified; I10 Essential (primary) hypertension; K21.9 Gastro-esophageal reflux disease without esophagitis; Z88.1 Allergy status to other antibiotic agents; Z91.040 Latex allergy status; Z88.2 Allergy status to sulfonamides; Z79.899 Other long term (current) drug therapy
CPT/HCPCS: 99284

== ENCOUNTER 2024-01-05 07:43 | Day surgery (SDC) | payer MEDICARE, BC ==
[2024-01-05] MEDS: Sodium Chloride 0.9% 10 ML Syringe FLUSH PRN (08:20)
[2024-01-05 09:00] VITALS: BP 183/77; PULSE 60
== END 2024-01-05 09:13 | disposition home or self-care (01) ==
LOC: JP.SDS 07:43
PROVIDERS: ATTEND Ophthalmology
DX: H25.11 Age-related nuclear cataract, right eye (principal)
CPT/HCPCS: J3490; V2632

== ENCOUNTER 2024-01-19 06:24 | Day surgery (SDC) | payer MEDICARE, BC ==
[2024-01-19] MEDS ORDERED: Sodium Chloride 0.9% 10 ML Syringe FLUSH PRN (07:30)
[2024-01-19 09:03] VITALS: PULSE 58
[2024-01-19 09:15] VITALS: BP 196/73
== END 2024-01-19 09:20 | disposition home or self-care (01) ==
LOC: JP.SDS 06:24
PROVIDERS: ATTEND Ophthalmology
DX: H25.12 Age-related nuclear cataract, left eye (principal); I10 Essential (primary) hypertension; E78.5 Hyperlipidemia, unspecified; K21.9 Gastro-esophageal reflux disease without esophagitis
CPT/HCPCS: 66984; V2632

== ENCOUNTER 2024-02-27 07:19 | Emergency (ER) | payer MEDICARE, BC ==
[2024-02-27 07:35] LABS: BASOPHILS ABSOLUTE AUTO 0.06 K/uL (0.00-0.10); BASOPHILS PERCENT AUTO 0.8 % (0.1-1.3); EOSINOPHILS ABSOLUTE AUTO 0.25 K/uL (0.00-0.40); EOSINOPHILS PERCENT AUTO 3.3 % (0.0-5.4); HEMATOCRIT 42.7 % (34.3-46.0); HEMOGLOBIN 14.4 g/dL (11.2-15.5); IMMATURE GRAN ABSOLUTE AUTO 0.04 K/uL (0.00-0.23); IMMATURE GRAN PERCENT AUTO 0.5 % (0.0-0.7); LYMPHOCYTES ABSOLUTE AUTO 2.37 K/uL (0.8-3.3); MEAN CORPUSCULAR HEMOGLOBIN 29.4 pg (31.6-35.5); MEAN CORPUSCULAR HGB CONC 33.7 g/dL (31.6-35.5); MEAN CORPUSCULAR VOLUME 87.1 fL (81.4-99.0); MONOCYTES ABSOLUTE AUTO 0.66 K/uL (0.20-0.90); MONOCYTES PERCENT AUTO 8.6 % (3.3-12.6); NEUTROPHILS ABSOLUTE AUTO 4.26 K/uL (1.0-7.6); NEUTROPHILS PERCENT AUTO 55.8 % (40.0-78.1); PLATELET COUNT,PLT 217 K/uL (130-375); WHITE BLOOD CELL COUNT,WBC 7.6 K/uL (3.2-11.0)
[2024-02-27] MEDS: Aspirin 81 MG Tab.Chew PO ONE (07:42)
[2024-02-27 07:57] LABS: A/G RATIO 1.2 (1.2-2.2); ALANINE AMINOTRANSFERASE,ALT 39 U/L (12-78); ALBUMIN 3.9 g/dL (3.4-5.0); ALKALINE PHOSPHATASE 70 U/L (46-116); ANION GAP 9.7 mmol/L (5.0-14.0); ASPARTATE AMNIOTRANSFERASE,AST 18 U/L (15-37); BILIRUBIN TOTAL 0.5 mg/dL (0.2-1.0); BLOOD UREA NITROGEN,BUN 13 mg/dL (7-18); CALCIUM 9.7 mg/dL (8.5-10.1); CARBON DIOXIDE,CO2 27 mmol/L (21-32); CHLORIDE,CL 103 mmol/L (100-108); CREATININE 0.8 mg/dL (0.6-1.0); EST CRCL DRUG DOSING (CG) 51.66 mL/min; ESTIMATED GFR 76 mL/min (>60); GLUCOSE RANDOM 125 mg/dL (74-106); POTASSIUM,K 4.1 mmol/L (3.6-5.2); PROTEIN TOTAL,TP 7.2 g/dL (6.4-8.2); SODIUM,NA 140 mmol/L (140-148); TROPONIN I HIGH SENSITIVITY 7.1 pg/mL (<=60.3)
[2024-02-27] MEDS: Famotidine 20 MG Tab PO ONE (09:00)
[2024-02-27 09:03] VITALS: BP 183/73; PULSE 59
== END 2024-02-27 10:39 | disposition home or self-care (01) ==
LOC: JP.ED 07:19
DX: R07.89 Other chest pain (principal); I10 Essential (primary) hypertension; E78.00 Pure hypercholesterolemia, unspecified; Z79.899 Other long term (current) drug therapy; Z79.51 Long term (current) use of inhaled steroids; Z91.040 Latex allergy status; Z88.2 Allergy status to sulfonamides; Z88.8 Allergy status to other drugs, medicaments and biological substances; Z88.1 Allergy status to other antibiotic agents
CPT/HCPCS: 36415; 71045; 71045-26; 80053; 84484; 85025; 93005; 99283; 99285; A9270-GY

== ENCOUNTER 2024-03-01 11:30 | Emergency (ER) | payer MEDICARE, BC ==
[2024-03-01 11:46] VITALS: BP 187/80; PULSE 59
[2024-03-01] MEDS: Ketorolac 15 MG/ML SDV IVPUSH ONE (13:36)
== END 2024-03-01 14:22 | disposition home or self-care (01) ==
LOC: JP.ED 11:30
DX: S46.911A Strain of unspecified muscle, fascia and tendon at shoulder and upper arm level, right arm, initial encounter (principal); M54.2 Cervicalgia; I10 Essential (primary) hypertension; E78.00 Pure hypercholesterolemia, unspecified; Z87.891 Personal history of nicotine dependence; Z88.1 Allergy status to other antibiotic agents; Z88.2 Allergy status to sulfonamides; Z88.8 Allergy status to other drugs, medicaments and biological substances; Z91.040 Latex allergy status; Z79.899 Other long term (current) drug therapy; X50.0XXA Overexertion from strenuous movement or load, initial encounter
CPT/HCPCS: 71046; 71046-26; 72050; 72050-26; 99284